=== PATIENT | male | born 1975 | race Caucasian/White ===

== ENCOUNTER 2019-09-04 12:34 | Emergency (ER) | payer MEDICAID, SELFPAY ==
[2019-09-04 12:55] VITALS: BP 167/94; PULSE 77; RESP 16; TEMP 36.7; O2SAT 96; BMI 28.8
== END 2019-09-04 15:46 | disposition left against medical advice (07) ==
PROVIDERS: Emergency Provider Family Medicine
DX: Z53.21 Procedure and treatment not carried out due to patient leaving prior to being seen by health care provider (principal)
CPT/HCPCS: 99281

== ENCOUNTER 2019-12-08 20:34 | Emergency (ER) | payer MEDICAID, SELFPAY ==
[2019-12-08 20:35] VITALS: BP 169/103; PULSE 81; RESP 18; TEMP 36.7; O2SAT 96; BMI 29.1
--- NOTE | 2019-12-08 20:38 | ECG_ITS ---
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 Measurements Intervals [place] Rate: 92 P: 65 TN: 154 QRS: 57 QRSD: 99 T: 40 QT: 346 QTc: 430 Interpretive Statements SINUS RHYTHM POSSIBLE LEFT ATRIAL ENLARGEMENT [-0.1mV P WAVE IN V1/V2] INCOMPLETE RIGHT BUNDLE BRANCH BLOCK [90+ ms QRS DURATION, TERMINAL R IN V1/V2, 40+ ms S IN I/aVL/V4/V5/V6] Compared to ECG 02/16/2019 06:37:59 Incomplete right bundle-branch block now present Electronically Signed On 12-09-2019 20:52:38 CDT by Bjorn Reagan M.D. [id number] f
--- NOTE | 2019-12-08 20:40 | W.ED.OVERDOS ---
HPI - Overdose General: Chief Complaint: Overdose Stated Complaint: OD Time Seen by Provider: 12/08/19 20:37 Source: patient and EMS Mode of arrival: EMS Limitations: no limitations History of Present Illness: HPI Narrative: 44-year-old male who states that he smoked a dab roughly 1 hour ago. Patient's called EMS because he has been quite lethargic and vomiting. Patient here is very lethargic and obviously under the influence. He will awake and answer my questions states he just feels very ill. He denies any other coingestions and denies any suicidality. Review of Systems Const: Denies: fever(s), chills, body aches or change in appetite Eyes: Denies: blurry vision or eye discomfort ENMT: Denies: throat pain or dental pain Card: Denies: chest pain Resp: Denies: dyspnea GI: Reports: nausea and vomiting : Denies: dysuria Musc: Denies: neck pain or back pain Skin/Breast: Denies: rash Neuro: Denies: headache(s) Psych: Denies: depression Lars/Lymph: Denies: easy bruising All/Imm: Denies: urticaria Physical Exam Const: COMMON NORMALS: patient oriented x3 and healthy appearing GENERAL APPEARANCE: lethargic ORIENTATION/CONSCIOUSNESS: Yes lethargic HENMT: COMMON NORMALS: normocephalic and atraumatic HEAD & SCALP: normocephalic and atraumatic Eye: COMMON NORMALS: Equal, round and reactive pupils present and EOMs intact bilaterally PUPIL: Yes Equal, round and reactive pupils present Neck/C-Spine: COMMON NORMALS: full ROM and supple Chest: COMMONS NORMALS: normal inspection of the chest and normal palpation of entire chest wall Resp: COMMON NORMALS: normal respiratory effort, No retractions, No use of accessory muscles and clear to auscultation bilaterally AUSCULTATION: clear to auscultation bilaterally Cardio: COMMON NORMALS: regular rate, regular rhythm and No murmurs present (Cardio) RATE: regular rate RHYTHM: regular rhythm GI: COMMON NORMALS: Normal to inspection, nondistended, normoactive bowel sounds present, Soft to palpation, non-tender and no masses PALPATION: Yes Soft to palpation Extremity: COMMON NORMALS: normal to inspection and full ROM Neuro: COMMON NORMALS: patient oriented x3, moves all extremities and no focal motor deficits SENSORIUM/ORIENTATION: Yes lethargic Psych: COMMON NORMALS: mental status grossly normal, Normal thought process present and cooperative THOUGHT PROCESS: Normal thought process present Skin: COMMON NORMALS: no rashes or lesions noted and no wounds GENERAL SKIN EXAM: no rashes or lesions noted Course Vital Signs: Vital signs: Vital Signs Temperature 98.1 F 12/08/19 20:35 Pulse Rate 61 12/08/19 23:18 Respiratory Rate 16 12/08/19 23:18 Blood Pressure 143/76 12/08/19 23:18 Pulse Oximetry 96 12/08/19 23:18 MDM - Overdose MDM Narrative: Medical decision making narrative: Patient presents here with overdose on marijuana. Patient is well-appearing here is able to ambulate now. This was unintentional. He has no signs of coingestion. Patient is amatory and is stable for discharge at this time. Lab Data: Labs: Lab Results 12/08/19 12/08/19 Range/Units 21:00 21:00 WBC 18.8 H (4.0-10.0) 10^3/ uL RBC 5.01 (4.1-5.3) 10^6/u L Hgb 15.9 (11.7-16.6) g/dL Hct 47.7 (42.0-52.0) % MCV 95.2 H (80-94) fL MCH 31.7 (28.0-34.0) pg MCHC 33.3 (30.0-36.0) g/dL RDW 12.6 (12.1-15.1) % Plt Count 300 (130-400) 10^3/c mm MPV 9.4 (7.4-10.4) fL Neut % (Auto) 85.1 % Lymph % (Auto) 7.1 % [place] % (Auto) 6.5 % Eos % (Auto) 0.2 % Baso % (Auto) 0.4 % Neut # (Auto) 15.99 H (1.8-7.7) 10^3/u L Lymph # (Auto) 1.3 (0.8-4.8) 10^3/u L [place] # (Auto) 1.2 H (0.2-0.9) 10^3/u L Eos # (Auto) 0.0 (0.0-0.8) 10^3/u L Baso # (Auto) 0.1 (0.0-0.1) 10^3/u L Nucleated RBC % (a uto) 0 % Nucleated RBCs # 0.0 /100WBC Sodium 138 (136-145) mmol/L Potassium 5.0 (3.5-5.1) mmol/L Chloride 100 (98-107) mmol/L Carbon Dioxide 27 (22-29) mmol/L Anion Gap 16.0 (5-19) BUN 13 (6-20) mg/dL Creatinine 1.1 (0.7-1.2) mg/dL GFR Calculation 73.4 L (90-130) mL/min Glucose 135 H (65-115) mg/dL Calculated Osmolal ity 288 (285-295) mOsm/k g Calcium 9.8 (8.5-10.5) mg/dL Total Bilirubin 0.3 (0.15-1.2) mg/dL AST 18 (0-40) U/L ALT 14 (0-41) U/L Alkaline Phosphata se 69 (40-130) IU/L Total Protein 7.0 (6.6-8.7) g/dL Albumin 4.5 (3.5-5.2) g/dL Globulin 2.5 (1.3-4.6) g/dL Salicylates < 0.3 L (3-10) mg/dL Acetaminophen < 5.0 L (10-30) ug/mL Ethyl Alcohol < 10 (0-10) mg/dL EKG Data^: EKG 1: Attestation: I personally reviewed and interpreted this EKG as follows: EKG interpretation date: 12/08/19 EKG interpretation time: 20:39 Interpretation: nsr hr [address] or t wave abnormalities qrs 99 qtc 396 Discharge Plan Discharge Patient Disposition: Home Clinical Impression: Accidental marijuana overdose Qualifiers: Encounter type: initial encounter Qualified Code(s): T40.7X1A - Poisoning by cannabis (derivatives), accidental (unintentional), initial encounter Condition: Stable Discharge Orders: Discharge Order (Routine); Ordered 12/09/19 Ordered By: Judi Francois Discharge Diet: Advance as tolerated Discharge Activity: Resume usual activity Patient Instructions: Marijuana Abuse Coding Level of Care Code ED Hand Cloth Cutter for Chg Fwd Exam Comprehensive
[2019-12-08] MEDS: ondansetron 2 mg/ML SDV 2 mL 4 MG IVP (20:57)
[2019-12-08] MEDS: sodium chloride 0.9% 1,000 ML 999 ML IV (20:58)
[2019-12-08 21:02] VITALS: BP 149/95; PULSE 56; RESP 17; O2SAT 95
[2019-12-08 21:07] LABS: Basophils # 0.1 10^3/uL (0.0-0.1); Basophils % 0.4 %; Eosinophils % 0.2 %; Hematocrit 47.7 % (42.0-52.0); Hemoglobin 15.9 g/dL (11.7-16.6); Lymphocytes # 1.3 10^3/uL (0.8-4.8); Lymphocytes % 7.1 %; Mean Corpuscular HGB Conc 33.3 g/dL (30.0-36.0); Mean Corpuscular Hemoglobin 31.7 pg (28.0-34.0); Mean Corpuscular Volume 95.2 fL (80-94); Mean Platelet Volume 9.4 fL (7.4-10.4); Monocytes # 1.2 10^3/uL (0.2-0.9); Monocytes % 6.5 %; Neutrophils # 15.99 10^3/uL (1.8-7.7); Neutrophils % 85.1 %; Nucleated Red Blood Cells % 0 %; Platelet Count 300 10^3/cmm (130-400); Red Blood Count 5.01 10^6/uL (4.1-5.3); Red Cell Distribution Width 12.6 % (12.1-15.1); White Blood Count 18.8 10^3/uL (4.0-10.0)
[2019-12-08 21:28] LABS: Alanine Aminotransferase 14 U/L (0-41); Albumin Level 4.5 g/dL (3.5-5.2); Alkaline Phosphatase 69 IU/L (40-130); Aspartate Amino Transferase 18 U/L (0-40); Blood Urea Nitrogen 13 mg/dL (6-20); Calcium 9.8 mg/dL (8.5-10.5); Carbon Dioxide 27 mmol/L (22-29); Chloride 100 mmol/L (98-107); Globulin 2.5 g/dL (1.3-4.6); Glomerular Filtration Rate 73.4 mL/min (90-130); Glucose 135 mg/dL (65-115); Osmolality Calculated 288 mOsm/kg (285-295); Sodium 138 mmol/L (136-145); Total Bilirubin 0.3 mg/dL (0.15-1.2)
[2019-12-08 21:31] LABS: Acetaminophen < 5.0 ug/mL (10-30); Alcohol Level < 10 mg/dL (0-10); Salicylate < 0.3 mg/dL (3-10)
[2019-12-08 22:57] VITALS: BP 133/81; PULSE 52; RESP 18; O2SAT 96
[2019-12-08 23:18] VITALS: BP 143/76; PULSE 61; RESP 16; O2SAT 96
[2019-12-09 00:25] VITALS: BP 123/75; PULSE 65; RESP 16; O2SAT 99
== END 2019-12-09 00:27 | disposition home or self-care (01) ==
PROVIDERS: Emergency Provider Emergency Medicine
DX: T40.7X1A Poisoning by cannabis (derivatives), accidental (unintentional), initial encounter (principal)
CPT/HCPCS: 12345; 80053; 80307; 85025; 93005; 99283; J2405; J7030

== ENCOUNTER 2020-02-27 20:16 | Emergency (ER) | payer MEDICAID, SELFPAY ==
[2020-02-27 20:55] VITALS: BP 150/100; PULSE 77; RESP 22; TEMP 36.9; O2SAT 98; BMI 27.7
--- NOTE | 2020-02-27 21:19 | XRR_ITS ---
PROCEDURE INFORMATION: Exam: XR Chest, 1 View Exam date and time: 02/27/2020 10:11 PM Age: 44 years old Clinical indication: Fever and shortness of breath; Patient HX: SOB, fever; Additional info: Dyspnea TECHNIQUE: Imaging protocol: XR of the chest Views: 1 view. COMPARISON: CR Chest 2 views* [id number] 02/19/2017 10:36 PM FINDINGS: Lungs: The lungs are clear. Pleural space: Unremarkable. No pleural effusion. No pneumothorax. Heart/Mediastinum: Unremarkable. No cardiomegaly. Bones/joints: Unremarkable. XR/XR chest 1V portable [id number] IMPRESSION: No acute cardiopulmonary abnormality.
--- NOTE | 2020-02-27 21:23 | ECG_ITS ---
[facility] Test Date: 2020-02-27 Pat Name: Lewis Lord Department: Room: Gender: Male [place] Drawer: : 1975 Requested By: Chace Diggs Order Number: [id number] Fredy MD: Leonardo Erickson M.D. Measurements Intervals [place] Rate: 60 P: 62 NM: 158 QRS: 57 QRSD: 98 T: 51 QT: 358 QTc: 359 Interpretive Statements SINUS RHYTHM WITH SINUS ARRHYTHMIA POSSIBLE LEFT ATRIAL ENLARGEMENT [-0.1mV P WAVE IN V1/V2] INCOMPLETE RIGHT BUNDLE BRANCH BLOCK [90+ ms QRS DURATION, TERMINAL R IN V1/V2, 40+ ms S IN I/aVL/V4/V5/V6] Compared to ECG 12/08/2019 20:39:23 No significant changes Electronically Signed On 02-28-2020 16:43:17 AUTOMATIC DEVELOPER by Leonardo Erickson M.D. [id number] f
--- NOTE | 2020-02-27 21:24 | W.ED.SOB ---
HPI - SOB/Dyspnea General: Chief Complaint: Shortness of Breath/Dyspnea Stated Complaint: fever/congestion/trouble breathing Time Seen by Provider: 02/27/20 21:04 History of Present Illness: HPI Narrative: The patient is a 44-year-old male with past medical history COPD who comes to the ER complaining of shortness of breath, cough, congestion, muscle aches, fever, chills, nausea, and vomiting for the past 2 days. He says it hurts when he coughs in his chest as well. No known Covid exposures although his child claims to be sick as well MD elicited complaint: shortness of breath, cough and pain with inspiration Pertinent past history: COPD Onset (ago): day(s) (2) Timing: progressively worsening Severity: moderate Exacerbating factors: exertion and coughing Known history of: COPD Associated symptoms: Reports cough, fever(s), myalgias, nausea and vomiting; Deny chest pain, dizziness, extremity pain, orthopnea, palpitations or polyuria Treatment prior to arrival: none Review of Systems General: Reports: 10 or more systems reviewed and unremarkable except in HPI and below Const: Reports: fever(s) Eyes: Denies: change in vision, blurry vision or eye redness ENMT: Denies: throat pain, swelling of lips/tongue, ear or mastoid pain or nasal congestion Card: Denies: chest pain, palpitations, irregular heart rhythm, edema, dyspnea on exertion or orthopnea Resp: Denies: dyspnea, productive cough or non-productive cough GI: Reports: nausea and vomiting : Denies: flank pain, urinary frequency or urinary urgency Musc: Denies: neck pain, back pain, extremity pain, joint pain, joint redness, limited range of motion or muscle weakness Skin/Breast: Denies: rash, pruritus, erythema, skin pain or skin tenderness Neuro: Denies: headache(s), numbness in extremities, weakness in extremities, sensory changes, difficulty walking, dizziness, confusion or Slurred speech present Psych: Denies: anxiety or depression Endo: Denies: polyuria All/Imm: Denies: urticaria, throat swelling or tongue swelling Physical Exam Const: COMMON NORMALS: no acute distress, average body habitus, patient oriented x3, no limitations, healthy appearing, alert and well nourished GENERAL APPEARANCE: cooperative, comfortable, well kempt and well developed ORIENTATION/CONSCIOUSNESS: Yes awake, Yes oriented to person, Yes oriented to place and Yes oriented to time HENMT: COMMON NORMALS: normocephalic, external ears normal and Normal external nose present HEAD & SCALP: normal to inspection and normocephalic NOSE: Normal external nose present EXTERNAL EAR: Yes external ears normal MOUTH: Normal oral and palatal mucosa present THROAT: posterior oropharynx normal Eye: COMMON NORMALS: Equal, round and reactive pupils present and EOMs intact bilaterally GENERAL EYE: appearance normal, both eyes and all related structures PUPIL: Yes Equal, round and reactive pupils present Neck/C-Spine: COMMON NORMALS: full ROM, no lymphadenopathy, no meningeal signs and no JVD GENERAL: Yes normal visual inspection Lymph: LYMPHATIC: no lymphadenopathy noted Chest: COMMONS NORMALS: normal inspection of the chest and normal palpation of entire chest wall Resp: COMMON NORMALS: normal respiratory effort, No retractions, No use of accessory muscles and percussion normal EFFORT & INSPECTION: Yes able to speak in complete sentences and No respiratory distress AUSCULTATION: wheezes and diminished lung sounds PERCUSSION: percussion normal OTHER: anterior chest wall tenderness to palpation reproducing the pain he feels when he coughs. Cardio: COMMON NORMALS: no JVD, regular rate, regular rhythm, S1 normal heart sound present, S2 normal heart sound present and Peripheral pulses 2+ throughout RATE: regular rate RHYTHM: regular rhythm HEART SOUNDS: S1 normal heart sound present and S2 normal heart sound present PERIPHERAL PULSES: Peripheral pulses 2+ throughout GI: COMMON NORMALS: Normal to inspection, nondistended, normoactive bowel sounds present, Soft to palpation, non-tender and no masses INSPECTION: Yes normal to inspection PALPATION: Yes Soft to palpation : COMMON NORMALS: Yes no CVA tenderness BLADDER/KIDNEY EXAM: Yes no CVA tenderness Back/Pelvis: COMMON NORMALS: no CVA tenderness, thoracic and lumbar spine normal to inspection, no thoracic nor lumbar tenderness and thoraco-lumbar ROM normal Extremity: COMMON NORMALS: normal to inspection, full ROM, capillary refill normal, no joint enlargement and no pedal edema GENERAL: Yes normal exam except as noted Neuro: COMMON NORMALS: patient oriented x3, CN's II-XII intact bilaterally, moves all extremities, no focal motor deficits, no sensory deficits noted and gait normal SENSORIUM/ORIENTATION: Yes alert, Yes oriented to person, Yes oriented to place and Yes oriented to time MENINGEAL SIGNS: Yes no meningeal signs Psych: COMMON NORMALS: mental status grossly normal, Normal thought process present, cooperative, normal affect and speech normal APPEARANCE: Yes well kempt ATTITUDE: Yes calm SPEECH: Yes normal speech THOUGHT PROCESS: Normal thought process present Skin: COMMON NORMALS: no rashes or lesions noted GENERAL SKIN EXAM: no rashes or lesions noted Course Vital Signs: Vital signs: Vital Signs Temperature 98.5 F 02/27/20 20:55 Pulse Rate 57 L 02/27/20 23:31 Respiratory Rate 18 02/27/20 23:31 Blood Pressure 134/78 02/27/20 23:31 Pulse Oximetry 95 02/27/20 23:31 MDM - SOB/Dyspnea MDM Narrative: Medical decision making narrative: Flu and Covid were negative. Likely COPD exacerbation. He will be discharged home with antibiotic, prednisone, and albuterol inhaler. Return to the ER with worsening symptoms otherwise follow-up with primary care physician in a couple days to monitor improvement. Differential Diagnosis: Shortness of Breath Differential Diagnosis: Likely acute exacerbation of chronic obstructive airways disease and community acquired pneumonia Lab Data: Labs: Lab Results 02/27/20 02/27/20 02/27/20 Range/Units 21:45 21:50 21:55 WBC 8.4 (4.0-10.0) 10^3/ uL RBC 5.28 (4.1-5.3) 10^6/u L Hgb 17.0 H (11.7-16.6) g/dL Hct 49.8 (42.0-52.0) % MCV 94.3 H (80-94) fL MCH 32.2 (28.0-34.0) pg MCHC 34.1 (30.0-36.0) g/dL RDW 12.6 (12.1-15.1) % Plt Count 307 (130-400) 10^3/c mm MPV 9.3 (7.4-10.4) fL Neut % (Auto) 60.4 % Lymph % (Auto) 20.4 % [place] % (Auto) 14.6 % Eos % (Auto) 3.0 % Baso % (Auto) 0.8 % Neut # (Auto) 5.06 (1.8-7.7) 10^3/u L Lymph # (Auto) 1.7 (0.8-4.8) 10^3/u L [place] # (Auto) 1.2 H (0.2-0.9) 10^3/u L Eos # (Auto) 0.3 (0.0-0.8) 10^3/u L Baso # (Auto) 0.1 (0.0-0.1) 10^3/u L Nucleated RBC % (a uto) 0 % Nucleated RBCs # 0.0 /100WBC Sodium (136-145) mmol/L Potassium (3.5-5.1) mmol/L Chloride (98-107) mmol/L Carbon Dioxide (22-29) mmol/L Anion Gap (5-19) BUN (6-20) mg/dL Creatinine (0.7-1.2) mg/dL GFR Calculation (90-130) mL/min Glucose (65-115) mg/dL Calculated Osmolal ity (285-295) mOsm/k g Lactic Acid (0.5-2.2) mmol/L Calcium (8.5-10.5) mg/dL Total Bilirubin (0.15-1.2) mg/dL AST (0-40) U/L ALT (0-41) U/L Alkaline Phosphata se (40-130) IU/L Troponin T Baselin e (0-15) ng/L Total Protein (6.6-8.7) g/dL Albumin (3.5-5.2) g/dL Globulin (1.3-4.6) g/dL Influenza Type A A g Negative (Negative) Influenza Type B A g Negative (Negative) SARS-CoV-2 Ag (Rap id) Negative (Negative) 02/27/20 02/27/20 02/27/20 Range/Units 21:55 21:55 21:55 WBC (4.0-10.0) 10^3/ uL RBC (4.1-5.3) 10^6/u L Hgb (11.7-16.6) g/dL Hct (42.0-52.0) % MCV (80-94) fL MCH (28.0-34.0) pg MCHC (30.0-36.0) g/dL RDW (12.1-15.1) % Plt Count (130-400) 10^3/c mm MPV (7.4-10.4) fL Neut % (Auto) % Lymph % (Auto) % [place] % (Auto) % Eos % (Auto) % Baso % (Auto) % Neut # (Auto) (1.8-7.7) 10^3/u L Lymph # (Auto) (0.8-4.8) 10^3/u L [place] # (Auto) (0.2-0.9) 10^3/u L Eos # (Auto) (0.0-0.8) 10^3/u L Baso # (Auto) (0.0-0.1) 10^3/u L Nucleated RBC % (a uto) % Nucleated RBCs # /100WBC Sodium 138 (136-145) mmol/L Potassium 4.2 (3.5-5.1) mmol/L Chloride 102 (98-107) mmol/L Carbon Dioxide 26 (22-29) mmol/L Anion Gap 14.2 (5-19) BUN 17 (6-20) mg/dL Creatinine 0.9 (0.7-1.2) mg/dL GFR Calculation 92.5 (90-130) mL/min Glucose 92 (65-115) mg/dL Calculated Osmolal ity 287 (285-295) mOsm/k g Lactic Acid 1.4 (0.5-2.2) mmol/L Calcium 10.2 (8.5-10.5) mg/dL Total Bilirubin 0.2 (0.15-1.2) mg/dL AST 16 (0-40) U/L ALT 16 (0-41) U/L Alkaline Phosphata se 80 (40-130) IU/L Troponin T Baselin e 6 (0-15) ng/L Total Protein 7.3 (6.6-8.7) g/dL Albumin 4.4 (3.5-5.2) g/dL Globulin 2.9 (1.3-4.6) g/dL Influenza Type A A g (Negative) Influenza Type B A g (Negative) SARS-CoV-2 Ag (Rap id) (Negative) Discharge Plan Discharge Patient Disposition: Home Clinical Impression: Acute exacerbation of chronic obstructive airways disease Condition: Stable Prescriptions: New ProAir HFA 90 mcg/actuation HFA aerosol inhaler 2 inh inhalation Q6H PRN (Reason: shortness of breath or wheezing) Qty: 18 RF: 0 ciprofloxacin HCl 500 mg tablet 500 mg PO Q12H Qty: 20 RF: 0 Medrol (Usama) 4 mg tablets,dose pack See Rx Instructions PO .COMPLEX Qty: 21 RF: 0 Discharge Orders: Discharge ED (Routine); Ordered 02/27/20 Ordered By: Chace Diggs Discharge Diet: Advance as tolerated Discharge Activity: Resume usual activity Patient Instructions: Chronic Obstructive Pulmonary Disease (ED) Activity Restrictions/Additional Instructions: You have a COPD exacerbation. Please use the albuterol to help with breathing as well as take the antibiotics and prednisone. Return to the ER with worsening symptoms. Follow-up with your primary care physician in a few days to monitor improvement of your symptoms Coding Level of Care Code ED Post Commander for Jose Antonio Schulz Exam Comprehensive
[2020-02-27] MEDS: sodium chloride 0.9% 1,000 ML 999 ML IV (21:50)
[2020-02-27 22:01] VITALS: BP 176/113; PULSE 65; RESP 20; O2SAT 96
[2020-02-27] MEDS: ondansetron 2 mg/ML SDV 2 mL 4 MG IVP (22:15)
[2020-02-27] MEDS: aspirin 325 mg Tablet 650 MG PO (22:20)
[2020-02-27 22:29] LABS: Basophils # 0.1 10^3/uL (0.0-0.1); Basophils % 0.8 %; Eosinophils # 0.3 10^3/uL (0.0-0.8); Hematocrit 49.8 % (42.0-52.0); Lymphocytes # 1.7 10^3/uL (0.8-4.8); Lymphocytes % 20.4 %; Mean Corpuscular HGB Conc 34.1 g/dL (30.0-36.0); Mean Corpuscular Hemoglobin 32.2 pg (28.0-34.0); Mean Corpuscular Volume 94.3 fL (80-94); Mean Platelet Volume 9.3 fL (7.4-10.4); Monocytes # 1.2 10^3/uL (0.2-0.9); Monocytes % 14.6 %; Neutrophils # 5.06 10^3/uL (1.8-7.7); Neutrophils % 60.4 %; Nucleated Red Blood Cells % 0 %; Platelet Count 307 10^3/cmm (130-400); Red Blood Count 5.28 10^6/uL (4.1-5.3); Red Cell Distribution Width 12.6 % (12.1-15.1); White Blood Count 8.4 10^3/uL (4.0-10.0)
[2020-02-27 22:31] VITALS: BP 125/94; PULSE 68; RESP 18; O2SAT 97
[2020-02-27 22:46] LABS: Alanine Aminotransferase 16 U/L (0-41); Albumin Level 4.4 g/dL (3.5-5.2); Alkaline Phosphatase 80 IU/L (40-130); Aspartate Amino Transferase 16 U/L (0-40); Blood Urea Nitrogen 17 mg/dL (6-20); Calcium 10.2 mg/dL (8.5-10.5); Carbon Dioxide 26 mmol/L (22-29); Chloride 102 mmol/L (98-107); Globulin 2.9 g/dL (1.3-4.6); Glomerular Filtration Rate 92.5 mL/min (90-130); Glucose 92 mg/dL (65-115); Lactic Sepsis W/Reflex 1.4 mmol/L (0.5-2.2); Osmolality Calculated 287 mOsm/kg (285-295); Sodium 138 mmol/L (136-145); Total Bilirubin 0.2 mg/dL (0.15-1.2); Total Protein 7.3 g/dL (6.6-8.7)
[2020-02-27 22:48] LABS: Troponin(5th) Baseline 6 ng/L (0-15)
[2020-02-27 22:57] LABS: Anion Gap 14.2 (5-19); Potassium 4.2 mmol/L (3.5-5.1)
[2020-02-27 23:01] VITALS: BP 150/103; PULSE 62; RESP 18; O2SAT 97
[2020-02-27 23:31] VITALS: BP 134/78; PULSE 57; RESP 18; O2SAT 95
[2020-02-27 23:44] LABS: Influenza A by IFA Negative (Negative); Influenza B by IFA Negative (Negative)
[2020-02-27 23:44] LABS: SARS Covid-2 Antigen Negative (Negative)
--- NOTE | 2020-02-28 01:09 | PC.NURSE ---
pt signed dc paperwork and left prior to med adm. Dr notified
--- NOTE | 2020-02-28 01:11 | PC.NURSE ---
I agree with the assessment charted by Maddy.
[2020-02-28 01:55] VITALS: BP 134/78; PULSE 98; RESP 22; O2SAT 95
== END 2020-02-28 01:59 | disposition home or self-care (01) ==
PROVIDERS: Emergency Provider Family Medicine
DX: J44.1 Chronic obstructive pulmonary disease with (acute) exacerbation (principal)
CPT/HCPCS: 12345; 36415; 71045; 80053; 83605; 84484; 85025; 87040; 87426; 87804; 93005; 96361; 96374; 99282; 99284; J2405; J7030

== ENCOUNTER → 2020-11-12 15:33 | Outpatient (BNVA) | payer BC, MEDICAID, SELFPAY | PROVIDERS: Visit Provider Nurse Practitioner Family | DX: Z20.822 Contact with and (suspected) exposure to COVID-19 (principal) | CPT/HCPCS: 87635 ==

== ENCOUNTER 2021-03-09 09:28 | Outpatient (CLI) | payer BC, MEDICAID, SELFPAY ==
--- NOTE | 2021-03-09 09:41 | XRR_ITS ---
PROCEDURE INFORMATION: Exam: XR Chest Exam date and time: 03/09/2021 9:41 AM Age: 45 years old Clinical indication: Cough with hemorrhage; Patient HX: Post covid hemoptysis TECHNIQUE: Imaging protocol: XR of the chest. Views: 2 views. Total images: 2 COMPARISON: CR XR chest 1V portable [id number] 02/27/2020 10:09 PM FINDINGS: Lungs: Unremarkable. No consolidation. Pleural spaces: Unremarkable. No pleural effusion. No pneumothorax. Heart/Mediastinum: Unremarkable. No cardiomegaly. Bones/joints: Unremarkable. XR/XR chest 2V* [id number] IMPRESSION: No acute findings.
== END 2021-03-09 09:29 | disposition home or self-care (01) ==
LOC: RAD 09:32
PROVIDERS: Visit Provider Family Medicine
DX: R04.2 Hemoptysis (principal)
CPT/HCPCS: 71046

== ENCOUNTER 2021-04-19 09:17 | Outpatient (CLI) | payer BC, MEDICAID, SELFPAY ==
--- NOTE | 2021-04-19 13:29 | PFTS_ITS ---
Date of Study:04/19/21 Date of Dictation: 04/19/2021 MECHANICS: Post bronchodilator forced vital capacity (FVC) is normal. Post bronchodilator forced expiratory volume in one second (FEV1) is normal. FEV1/FVC is reduced. There is significant response to bronchodilators. FLOW VOLUME LOOP: Sloping of expiratory limb suggestive of airway obstruction . LUNG VOLUMES: Total lung capacity (TLC) is normal. Residual volume (RV) is normal. DIFFUSING CAPACITY FOR CARBON MONOXIDE: Normal. . INTERPRETATION: The prebronchodilator spirometry is consistent with moderate obstruction which improved significantly post bronchodilators. Lung volumes are normal. Gas transfer is normal. Constellation of findings consistent with reversible obstructive ventilatory disease entities like asthma. Please correlate clinically. MTDD
== END 2021-04-19 09:18 | disposition home or self-care (01) ==
PROVIDERS: Visit Provider Family Medicine
DX: J44.9 Chronic obstructive pulmonary disease, unspecified (principal)
CPT/HCPCS: 94060; 94726; 94729; J7611

== ENCOUNTER 2021-04-19 09:19 | Outpatient (CLI) | payer BC, MEDICAID, SELFPAY ==
--- NOTE | 2021-04-19 09:30 | CT_ITS ---
WS: [id number] CT CHEST WITH INTRAVENOUS CONTRAST HISTORY: HEMOPTYSIS/NIGHT SWEATS TECHNIQUE: Contiguous 5 mm axial imaging performed on the thorax. Coronal and sagittal reformats are submitted. All CT scans at [facility] use at least one of these dose optimization techniques: automated exposure control; mA and/or kV adjustment per patient size (includes targeted exams where dose is matched to clinical indication); or iterative reconstruction. CONTRAST: Omnipaque 300; 95 mL IV. DLP: 865.90 mGy.cm COMPARISON: 03/10/2011 Lungs and central airway: No pulmonary nodule or mass. Normal vasculature. No pneumonia. Pleura: Normal. No pleural effusion. Heart and pericardium: Normal size heart with no pericardial effusion. Mediastinum and favio: No mediastinum or hilar adenopathy. Vessels: Normal size aorta and pulmonary artery. There is a small amount of air in the pulmonary carmen ry and also smaller veins in the superior mediastinum. This is probably due to poor injection techniq ue. Chest wall and lower neck: No soft tissue masses. Upper abdomen: Retroaortic LEFT renal vein. Partially contracted gallbladder. Osseous structures: No destructive process. CT/CT chest w con* [id number] IMPRESSION: 1. No pulmonary mass or pneumonia. 2. No endobronchial lesions identified. 3. No adenopathy.
[2021-04-19] MEDS: iohexol 300 mg/mL 100 mL Btl IV (10:21)
== END 2021-04-19 09:20 | disposition home or self-care (01) ==
LOC: RAD 09:20
PROVIDERS: Visit Provider Pediatrics
DX: R04.2 Hemoptysis (principal); R61 Generalized hyperhidrosis
CPT/HCPCS: 71260

== ENCOUNTER 2021-11-20 19:45 | Emergency (ER) | payer BC, MEDICAID, SELFPAY ==
[2021-11-20 19:51] VITALS: BP 172/108; PULSE 67; RESP 16; TEMP 36.9; O2SAT 96
--- NOTE | 2021-11-20 20:22 | W.ED.PSYCHS ---
HPI - Psych General: Chief Complaint: Psychiatric Symptoms Stated Complaint: MHE Time Seen by Provider: 11/20/21 19:54 Source: patient History of Present Illness: 46-year-old male brought in by law enforcement. Evidently, he had made suicidal statements to his , into law enforcement as well. This was in the middle of a verbal dispute with he and his . He says now that he said some things he should not have. He floridly denies any suicidal ideation currently, and has no plan to hurt himself or anyone else. He does admit to chronic depression, which she is attempting to manage on his own. He is a patient at [facility], [facility], and has been a patient at [facility] prior. He has not been hospitalized for suicidal ideations in the past. He denies any hallucinations. No drug or alcohol intake. MD complaint: feels depressed and other Onset (ago): hour(s) Duration: other History of same: Yes Relieving factors: none Exacerbating factors: none Associated psychiatric symptoms: depression Associated symptoms: Reports depression; Deny auditory hallucinations, visual hallucinations, delusions, homicidal ideation or suicidal ideation Treatments prior to arrival: none Review of Systems Const: Denies: fever(s), chills or body aches Eyes: Denies: change in vision Card: Denies: chest pain or palpitations Resp: Reports: non-productive cough and wheezing; Denies: dyspnea or productive cough GI: Denies: abdominal pain, nausea, vomiting, diarrhea or hematochezia Skin/Breast: Denies: rash Neuro: Denies: headache(s), weakness in extremities, dizziness or confusion Psych: Reports: depression; Denies: visual hallucinations, auditory hallucinations, suicidal ideation or homicidal ideation [facility] ED PFSH: Social History Smoking and tobacco status: current every day smoker cigarettes Physical Exam Const: COMMON NORMALS: no acute distress GENERAL APPEARANCE: cooperative; not ill appearing HENMT: COMMON NORMALS: normocephalic, atraumatic and Normal external nose present HEAD & SCALP: normocephalic and atraumatic FACE & SINUS: normal facial exam NOSE: Normal external nose present and Normal nares present Eye: COMMON NORMALS: Equal, round and reactive pupils present and EOMs intact bilaterally PUPIL: Yes Equal, round and reactive pupils present Neck/C-Spine: GENERAL: Yes trachea midline Chest: CHEST: Yes Symmetrical chest wall rise Resp: COMMON NORMALS: normal respiratory effort and No use of accessory muscles AUSCULTATION: wheezes (Bilaterally) Cardio: COMMON NORMALS: regular rate and regular rhythm RATE: regular rate RHYTHM: regular rhythm GI: COMMON NORMALS: Normal to inspection, nondistended, normoactive bowel sounds present and Soft to palpation PALPATION: Yes Soft to palpation Extremity: COMMON NORMALS: no pedal edema Neuro: DRISS COMA SCALE: document GCS findings [place] coma scale eye opening: Spontaneous [place] coma scale verbal response: Orientated Driss coma scale motor response: Obey commands [place] coma scale total score: 15 SPEECH: speech normal Psych: COMMON NORMALS: mental status grossly normal, Normal thought process present and cooperative ATTITUDE: Yes calm and Yes engaged ACTIVITY/MOTOR BEHAVIOR: Yes appropriate eye contact MOOD & AFFECT: Yes depressed mood THOUGHT PROCESS: Normal thought process present THOUGHT CONTENT: Yes Normal thought content present and No delusions ATTENTION/CONCENTRATION: Yes attention grossly intact and Yes concentration grossly intact MEMORY/COGNITION: Yes memory grossly intact and Yes cognition grossly intact INSIGHT: Fair insight present (Psych) JUDGEMENT: Fair judgement present (Psych) Skin: COMMON NORMALS: no rashes or lesions noted GENERAL SKIN EXAM: no rashes or lesions noted Course Vital Signs: Vital signs: Vital Signs Temperature 98.4 F 11/20/21 19:51 Pulse Rate 67 11/20/21 19:51 Respiratory Rate 18 11/20/21 20:44 Blood Pressure 172/108 11/20/21 19:51 Pulse Oximetry 96 11/20/21 20:44 Oxygen Delivery Me thod 11/20/21 19:51 MDM - Psych Medical Decision Making This patient has been a difficult social situation today. He admits that he made statements, which not only are not true, but that he should not have made. He does say that his is quite upset as well. He is reluctant to go back home to the household if released, and I believe it would be a good decision for him not to. He does note that he can go to his adoptive parents house tonight and attempt to separate himself from his prior situation today. I agree that this is a good plan, and shows some insight. He floridly denies any wish to harm himself or anyone else. He will be allowed discharge. He does not appear to be under the influence of any substances. Discharge Plan Discharge Patient Disposition: Home Clinical Impression: Depression, Domestic problems Condition: Stable Prescriptions: No Action lisinopril 10 mg tablet 10 mg PO DAILY ProAir HFA 90 mcg/actuation HFA aerosol inhaler 2 inh inhalation Q6H PRN (Reason: shortness of breath or wheezing) Qty: 18 0RF Discharge Orders: Discharge ED (Routine); Ordered 11/20/21 Ordered By: Tavo Escamilla Patient Instructions: Depression (ED) Activity Restrictions/Additional Instructions: Return immediately to the emergency department for any thoughts or wishes to harm your self or anyone else. It is a good plan to separate your self from your domestic situation for at least the next 24 hours. Return for any other concerning symptoms. Coding Level of Care Code ED Band Sawing Machine Operator for Jose Antonio Fwd Exam Comprehensive
[2021-11-20 20:44] VITALS: RESP 18; O2SAT 96
== END 2021-11-20 20:46 | disposition home or self-care (01) ==
PROVIDERS: Emergency Provider Emergency Medicine
DX: F32.A Depression, unspecified (principal); Z63.0 Problems in relationship with spouse or partner; F17.210 Nicotine dependence, cigarettes, uncomplicated
CPT/HCPCS: 99285

== ENCOUNTER 2021-12-25 11:01 | Emergency (ER) | payer BC, MEDICAID, SELFPAY ==
[2021-12-25] VITALS (7 sets, daily range): BP systolic 130–168; BP diastolic 90–105; PULSE 61–87; RESP 13–22; TEMP 36.6; O2SAT 94–99; BMI 23.7
[2021-12-25 11:22] LABS: Glucose Point of Care 90 mg/dL (70-110)
--- NOTE | 2021-12-25 11:26 | CTR_ITS ---
PROCEDURE INFORMATION: Exam: CT Head Without Contrast Exam date and time: 12/25/2021 11:39 AM Age: 46 years old Clinical indication: Pain; Headache not specified; Patient HX: Stuttering, shaking x 5 days, no HX of trauma; Additional info: Neuro symptoms TECHNIQUE: Imaging protocol: Computed tomography of the head without contrast. Radiation optimization: All CT scans at this facility use at least one of these dose optimization techniques: automated exposure control; mA and/or kV adjustment per patient size (includes targeted exams where dose is matched to clinical indication); or iterative reconstruction. COMPARISON: CT head wo con* [id number] 07/15/2017 9:30 PM RADIATION DOSE METRICS: Total DLP (mGy-cm): 1023.14 FINDINGS: Brain: No intracranial hemorrhage. Normal burdick white differentiation. Subtle areas of decreased attenuation in the deep white matter of the bilateral frontal lobes is nonspecific but unchanged since 2018 and compatible with microvascular ischemia. No evidence of edema or territorial infarct. No abnormal mass effect or midline shift. No extra-axial fluid collection. Cerebral ventricles: No ventriculomegaly. Paranasal sinuses: Visualized sinuses are unremarkable. No fluid levels. Mastoid air cells: Visualized mastoid air cells are well aerated. Bones/joints: No acute fracture. Soft tissues: Unremarkable. CT/CT head wo con* [id number] IMPRESSION: No acute intracranial abnormality.
[2021-12-25 11:40] LABS: Basophils # 0.1 10^3/uL (0.0-0.1); Basophils % 0.9 %; Eosinophils # 0.1 10^3/uL (0.0-0.8); Eosinophils % 1.4 %; Hematocrit 54.2 % (42.0-52.0); Hemoglobin 18.3 g/dL (11.7-16.6); Lymphocytes % 30.3 %; Mean Corpuscular HGB Conc 33.8 g/dL (30.0-36.0); Mean Corpuscular Hemoglobin 32.2 pg (28.0-34.0); Mean Corpuscular Volume 95.3 fl (80-94); Mean Platelet Volume 9.7 fL (7.4-10.4); Monocytes # 0.6 10^3/uL (0.2-0.9); Monocytes % 8.9 %; Neutrophils # 3.83 10^3/uL (1.8-7.7); Nucleated Red Blood Cells % 0 %; Platelet Count 318 10^3/cmm (130-400); Red Blood Count 5.69 10^6/uL (4.1-5.3); Red Cell Distribution Width 12.9 % (12.1-15.1); White Blood Count 6.6 10^3/uL (4.0-10.0)
[2021-12-25 11:51] LABS: Alanine Aminotransferase 11 U/L (0-41); Albumin Level 4.5 g/dL (3.5-5.2); Alkaline Phosphatase 89 U/L (40-130); Aspartate Amino Transferase 16 U/L (0-40); Blood Urea Nitrogen 12 mg/dL (6-20); Calcium 9.6 mg/dL (8.5-10.5); Carbon Dioxide 28 mmol/L (22-29); Chloride 100 mmol/L (98-107); Globulin 3.4 g/dL (1.3-4.6); Glomerular Filtration Rate 91.7 mL/min (90-130); Glucose 96 mg/dL (65-115); Magnesium 2.1 mg/dL (1.7-2.3); Osmolality Calculated 288 mOsm/kg (285-295); Sodium 139 mmol/L (136-145); Total Bilirubin 0.5 mg/dL (0.15-1.2); Total Protein 7.9 g/dL (6.6-8.7)
[2021-12-25 11:52] LABS: Alcohol Level < 10 mg/dL (0-10)
[2021-12-25 11:56] LABS: Erythrocyte Sedimentation Rate 4 mm/hr (0-10)
--- NOTE | 2021-12-25 12:28 | ED_ITS ---
HPI - Neuro Symptoms/Deficit General: Chief Complaint: Neuro Symptoms/Deficit Stated Complaint: stoke like symptoms Time Seen by Provider: 12/25/21 11:14 History of Present Illness: This patient is a 46 year old presenting from home with concern for stroke. His SO who is with him at the time of my assessment tells me that he has been under a lot of stress and that he has had stuttering and constant shaking for the past two days. The patient had indicated that he wanted her to talk for him - but then joined in to provide history. He says that he noticed these symptoms starting 4 days ago. He has had similar symptoms in the past and was told that he had dark spots in his brain of CT or MR. He was seen by Dr. Live for this. He was not given any specific treatment and doesn't know what the diagnosis was. I was not able to find any notes referring to these symptoms in the EHR. The patient reports a mild headache, but no fever, no vision changes, no numbness, weakness, trouble walking or problems with coordination. He has shaking of his right arm, right leg, head during my exam, but he says that the shaking usually happens all over his body. His SO says that it is pretty much constant. The patient smokes. He has a history of HTN and is on BP medication although she notes that it is not the lisinopril that is listed on his medication list. They can't remember what the name of the medication is. Nothing makes the symptoms better or worse. Associated symptoms: Reports headache(s); Deny chest pain, malaise, nausea or vomiting Review of Systems Const: Denies: fever(s), chills, fatigue or malaise Eyes: Denies: change in vision ENMT: Denies: odynophagia Card: Denies: chest pain or swelling of feet/ankles Resp: Denies: dyspnea, productive cough or non-productive cough GI: Denies: abdominal pain, nausea or vomiting : Denies: flank pain Musc: Denies: neck pain or back pain Skin/Breast: Denies: rash Neuro: Reports: headache(s), seizure-like activity, involuntary movements and other (stuttering) Lars/Lymph: Denies: easy bruising or easy bleeding PFS ED PFSH: Medical History Hypertension Social History Smoking and tobacco status: current every day smoker cigarettes NIH stroke score NIHSS: Level Of Consciousness - 1a: 0 Level Of Consciousness Questions - 1b: Both Correct Level Of Consciousness Commands - 1c: Both Correct Best Gaze - 2: Normal Visual Cody - 3: No Visual Loss Facial Palsy - 4: Normal Motor Arm Right - 5: No Drift Motor Arm Left - 5: No Drift Motor Leg Right - 6: No Drift Motor Leg Left - 6: No Drift Limb Ataxia - 7: Absent Sensory - 8: Normal Best Language - 9: No Aphasia Dysarthia - 10 : Normal Extinction And Inattention - 11: 0 Score: Total Score: 0 Physical Exam Const: COMMON NORMALS: no acute distress, patient oriented x3, no limitations and alert GENERAL APPEARANCE: cooperative and comfortable HENMT: HEAD & SCALP: normal to inspection FACE & SINUS: normal facial exam Eye: GENERAL EYE: appearance normal, both eyes and all related structures Neck/C-Spine: COMMON NORMALS: supple, no meningeal signs and no JVD Chest: COMMONS NORMALS: normal inspection of the chest Resp: COMMON NORMALS: normal respiratory effort, No use of accessory muscles and clear to auscultation bilaterally AUSCULTATION: clear to auscultation bilaterally Cardio: COMMON NORMALS: no JVD, regular rate, regular rhythm and No murmurs present (Cardio) RATE: regular rate RHYTHM: regular rhythm GI: COMMON NORMALS: Normal to inspection, nondistended, normoactive bowel sounds present, Soft to palpation and non-tender INSPECTION: Yes normal to inspection AUSCULTATION: Yes normoactive bowel sounds PALPATION: Yes Soft to palpation Back/Pelvis: COMMON NORMALS: thoracic and lumbar spine normal to inspection Extremity: COMMON NORMALS: normal to inspection Neuro: COMMON NORMALS: patient oriented x3, moves all extremities, no focal motor deficits and no sensory deficits noted SENSORIUM/ORIENTATION: Yes alert MENINGEAL SIGNS: Yes no meningeal signs CRANIAL NERVES: Yes CN normal exc ept as noted SPEECH: Other neuro speech findings (intermittent stuttering) MOTOR EXAM: 5/5 motor strength present throughout and Motor abnormalites present (shaking right arm and leg, and head - distractable) Psych: COMMON NORMALS: mental status grossly normal, cooperative and normal affect Skin: COMMON NORMALS: no rashes or lesions noted and turgor normal GENERAL SKIN EXAM: no rashes or lesions noted and turgor normal Course Vital Signs: Vital signs: Vital Signs Temperature 97.9 F 12/25/21 11:05 Pulse Rate 65 12/25/21 13:30 Respiratory Rate 15 12/25/21 13:30 Blood Pressure 130/90 12/25/21 14:11 Pulse Oximetry 98 12/25/21 13:30 Oxygen Delivery Me thod 12/25/21 11:05 MDM - Neuro Symptoms/Deficit Medical Decision Making No evidence at all of acute stroke. Really no neuro abnormalities on exam at all. The stuttering and shaking of the head, right arm, right leg are not consistent with any structural neurologic deficit. There is no numbness or motor weakness. The patient has been under a lot of stress and this may be a functional neurologic disorder. Work-up was negative. CT of the head did show some chronic changes that are stable since 2018 per radiology. The patient's blood pressure remained elevated while in the ER. He was given a dose of 0.1 mg of clonidine and his blood pressure was 130/90 when he was discharged. He was also given a dose of hydroxyzine for anxiety. He was very accepting of that as a diagnosis. He does have primary care at [facility]. He will follow-up with them. He was given prescriptions for hydroxyzine and clonidine as well. Lab Data : 12/25/21 11:22 12/25/21 11:[address] 12/25/21 11:26 IMPRESSION: No acute intracranial abnormality. Laboratory Results WBC 6.6 10^3/uL (4.0-10.0) 12/25/21 11: RBC 5.69 10^6/uL (4.1-5.3) H 12/25/21 11:22 Hgb 18.3 g/dL (11.7-16.6) H 12/25/21 11:22 Hct 54.2 % (42.0-52.0) H 12/25/21 11:22 MCV 95.3 fl (80-94) H 12/25/21 11:22 MCH 32.2 pg (28.0-34.0) 12/25/21 11:22 MCHC 33.8 g/dL (30.0-36.0) 12/25/21 11: RDW 12.9 % (12.1-15.1) 12/25/21 11: Plt Count 318 10^3/cmm (130-400) 12/25/21 11:22 MPV 9.7 fL (7.4-10.4) 12/25/21 11: Neut % (Auto) 58.0 % 12/25/21 11:22 Lymph % (Auto) 30.3 % 12/25/21 11:22 [place]alle % (Auto) 8.9 % 12/25/21 11:22 Eos % (Auto) 1.4 % 12/25/21 11: Baso % (Auto) 0.9 % 12/25/21 11: Neut # (Auto) 3.83 10^3/uL (1.8-7.7) 12/25/21 11: Lymph # (Auto) 2.0 10^3/uL (0.8-4.8) 12/25/21 11:22 [place]alle # (Auto) 0.6 10^3/uL (0.2-0.9) 12/25/21 11: Eos # (Auto) 0.1 10^3/uL (0.0-0.8) 12/25/21 11: Baso # (Auto) 0.1 10^3/uL (0.0-0.1) 12/25/21 11: Nucleated RBC % (auto) 0 % 12/25/21 11: Nucleated RBCs # 0.0 /100WBC 12/25/21 11:22 ESR 4 mm/hr (0-10) 12/25/21 11:22 Sodium 139 mmol/L (136-145) 12/25/21 11:22 Potassium 4.0 mmol/L (3.5-5.1) 12/25/21 11: Chloride 100 mmol/L (98-107) 12/25/21 11:22 Carbon Dioxide 28 mmol/L (22-29) 12/25/21 11:22 Anion Gap 15.0 (5-19) 12/25/21 11:22 BUN 12 mg/dL (6-20) 12/25/21 11:22 Creatinine 0.9 mg/dL (0.7-1.2) 12/25/21 11:22 GFR Calculation 91.7 mL/min (90-130) 12/25/21 11:22 Glucose 96 mg/dL (65-115) 12/25/21 11:22 POC Glucose 90 mg/dL (70-110) 12/25/21 11:18 Calculated Osmolality 288 mOsm/kg (285-295) 12/25/21 11:22 Calcium 9.6 mg/dL (8.5-10.5) 12/25/21 11:22 Magnesium 2.1 mg/dL (1.7-2.3) 12/25/21 11:22 Total Bilirubin 0.5 mg/dL (0.15-1.2) 12/25/21 11:22 AST 16 U/L (0-40) 12/25/21 11:22 ALT 11 U/L (0-41) 12/25/21 11:22 Alkaline Phosphatase 89 U/L (40-130) 12/25/21 11:22 Total Protein 7.9 g/dL (6.6-8.7) 12/25/21 11:22 Albumin 4.5 g/dL (3.5-5.2) 12/25/21 11:22 Globulin 3.4 g/dL (1.3-4.6) 12/25/21 11:22 Urine Color Yellow (Yellow) 12/25/21 13:27 Urine Appearance Clear (CLEAR) 12/25/21 13:27 Urine pH 7 (5-7) 12/25/21 13:27 Ur Specific [place] 1.010 (1.005-1.030) 12/25/21 13:27 Urine Protein Neg (Negative) 12/25/21 13:27 Urine Glucose (UA) Norm (Normal) 12/25/21 13:27 Urine Ketones Negative (Negative) 12/25/21 13:27 Urine Blood Neg (Negative) 12/25/21 13:27 Urine Nitrate Negative (Negative) 12/25/21 13:27 Urine Bilirubin Neg (Negative) 12/25/21 13:27 Urine Urobilinogen Norm mg/dL (Negative) 12/25/21 13:27 Ur Leukocyte Esterase Negative (Negative) 12/25/21 13:27 Urine Opiates Screen Negative ng/mL (Negative) 12/25/21 13:27 Ur Barbiturates Screen Negative ng/mL (Negative) 12/25/21 13:27 Ur Phencyclidine Scrn Negative ng/mL (Negative) 12/25/21 13:27 Ur Amphetamines Screen Negative ng/mL (Negative) 12/25/21 13:27 U Benzodiazepines Scrn Negative ng/mL (Negative) 12/25/21 13:27 Urine Cocaine Screen Negative ng/mL (Negative) 12/25/21 13:27 U Marijuana (THC) Screen Positive ng/mL (Negative) H 12/25/21 13:27 Ethyl Alcohol < 10 mg/dL (0-10) 12/25/21 11:22 Discharge Plan Discharge Patient Disposition: Home Clinical Impression: Hypertension, Anxiety, Functional neurological symptom disorder with abnormal movement Condition: Stable Prescriptions: New clonidine HCl 0.1 mg tablet 0.1 mg PO BID Qty: 60 0RF hydroxyzine HCl 50 mg tablet 50 mg PO Q8H PRN (Reason: anxiety) Qty: 30 0RF No Action ProAir HFA 90 mcg/actuation HFA aerosol inhaler 2 inh inhalation Q6H PRN (Reason: shortness of breath or wheezing) Qty: 18 0RF amlodipine 10 mg tablet 10 mg Discharge Orders: Discharge ED (Routine); Ordered 12/25/21 Ordered By: Lidia Jarquin Discharge Diet: Usual diet Discharge Activity: Resume usual activity Patient Instructions: Opioid Safety, Pain Management Activity Restrictions/Additional Instructions: Follow-up with your primary care physician for further evaluation of your symptoms. Return to the ER if any new or worse symptoms occur. Coding Level of Care Code ED Earth Science Laboratory Technician for Jazmyng Fwd Exam Comprehensive
[2021-12-25 13:52] LABS: Add Urine Microscopic? NO; Charge for UA Resulting for Rev
[2021-12-25 13:54] LABS: Protein Urine Neg (Negative); Urine Appearance Clear (CLEAR); Urine Color Yellow (Yellow); pH Urine 7 (5-7)
[2021-12-25 13:55] LABS: Bilirubin Urine Neg (Negative); Blood Urine Neg (Negative); Glucose Urine UA Norm (Normal); Ketones Urine Negative (Negative); Leukocyte Esterase Urine Negative (Negative); Nitrate Urine Negative (Negative); Urobilinogen Urine Norm (Negative)
[2021-12-25 14:04] LABS: Amphetamines Screen Urine Negative (Negative); Barbiturates Screen Urine Negative (Negative); Benzodiazepines Screen Urine Negative (Negative); Cocaine Screen Urine Negative (Negative); Opiate Screen Urine Negative (Negative); PCP Screen Urine Negative (Negative); THC Screen Urine Positive (Negative)
[2021-12-25] MEDS: cloNIDine 0.1 mg Tablet PO (14:11)
[2021-12-25] MEDS: hyDROXYzine 25 mg Capsule 50 MG PO (14:21)
== END 2021-12-25 14:31 | disposition home or self-care (01) ==
PROVIDERS: Emergency Provider Emergency Medicine
DX: F44.4 Conversion disorder with motor symptom or deficit (principal); I10 Essential (primary) hypertension; F41.9 Anxiety disorder, unspecified; F17.210 Nicotine dependence, cigarettes, uncomplicated
CPT/HCPCS: 36416; 70450; 80053; 80306; 80307; 81003; 82962; 83735; 85025; 85651; 99285

== ENCOUNTER 2022-02-08 07:23 | Emergency (ER) | payer BC, MEDICAID, SELFPAY ==
[2022-02-08 07:31] VITALS: BP 179/99; PULSE 85; TEMP 36.6; O2SAT 98; BMI 25.7
--- NOTE | 2022-02-08 07:42 | W.ED.EYEPROB ---
Documented by User: FIORELLA Ruth 02/08/22 08:33 HPI - Eye Problem General: Chief complaint: Eye Problems Stated complaint: something in his eye Time Seen by Provider: 02/08/22 07:24 History of Present Illness: Patient is a 46-year-old male comes to the ED with left eye complaint. Patient says he was hanging drywall yesterday afternoon and something fell into his left eye. He has tried flushing it out under water but he still feels like there is something in his left eye. Endorses eye pain that he rates an 8 out of 10. He wears glasses and does not wear any contacts. Denies any vision changes. Patient is up-to-date on his tetanus. Associated symptoms: Denies fever(s), headache(s), nausea, neck pain or vomiting Review of Systems Const: Denies: fever(s), chills or fatigue Eyes: Reports: eye discomfort (Feels like foreign body got in left eye); Denies: change in vision ENMT: Denies: throat pain, odynophagia, nasal discharge or nasal congestion Card: Denies: chest pain, palpitations, edema, swelling of feet/ankles, dyspnea on exertion or orthopnea Resp: Denies: dyspnea, productive cough or non-productive cough GI: Denies: abdominal pain, nausea, vomiting, diarrhea, constipation or hematochezia : Denies: flank pain, difficulty urinating, dysuria or hematuria Musc: Denies: neck pain, back pain or extremity swelling Skin/Breast: Denies: rash or new lesions Neuro: Denies: headache(s), numbness in extremities or weakness in extremities PFS ED PFSH: Medical History Hypertension No pertinent family history Social History Smoking and tobacco status: current every day smoker cigarettes Physical Exam Const: COMMON NORMALS: no acute distress, patient oriented x3 and alert HENMT: COMMON NORMALS: normocephalic HEAD & SCALP: normocephalic MOUTH: Normal oral and palatal mucosa present THROAT: posterior oropharynx normal and uvula midline Eye: COMMON NORMALS: Equal, round and reactive pupils present and EOMs intact bilaterally CONJUNCTIVA: Yes conjunctival abnormal positive left conjunctival injection diffuse PUPIL: Yes Equal, round and reactive pupils present OTHER: Exam of left hand?small foreign body seen on eye. Fluorescein dye eye exam performed and it did light up a small corneal abrasion on the eye. Neck/C-Spine: COMMON NORMALS: supple GENERAL: Yes normal visual inspection Resp: COMMON NORMALS: normal respiratory effort, No retractions, No use of accessory muscles and clear to auscultation bilaterally AUSCULTATION: clear to auscultation bilaterally Cardio: COMMON NORMALS: regular rate, regular rhythm, S1 normal heart sound present, S2 normal heart sound present, No gallops present (Cardio), No clicks present (Cardio), No murmurs present (Cardio) and Peripheral pulses 2+ throughout RATE: regular rate RHYTHM: regular rhythm HEART SOUNDS: S1 normal heart sound present and S2 normal heart sound present PERIPHERAL PULSES: Peripheral pulses 2+ throughout GI: COMMON NORMALS: Normal to inspection, nondistended, normoactive bowel sounds present, Soft to palpation, non-tender and no masses PALPATION: Yes Soft to palpation : COMMON NORMALS: Yes no CVA tenderness BLADDER/KIDNEY EXAM: Yes no CVA tenderness Back/Pelvis: COMMON NORMALS: no CVA tenderness Extremity: COMMON NORMALS: normal to inspection Neuro: COMMON NORMALS: patient oriented x3 SENSORIUM/ORIENTATION: Yes alert GAIT: Yes Normal gait present Skin: GENERAL SKIN EXAM: dry skin Procedures FB Removal Eye Time Out performed: Yes Location: eye (L) Topical anesthetic used: tetracaine Foreign body: metal Evidence of corneal penetration: Yes Technique: irrigation and cotton tip swab Procedure performed under: direct visualization with magnification Post-procedure medication: ophthalmic antibiotic and topical anesthetic Patient tolerated procedure: well Complications: corneal penetration Course Vital Signs: Vital signs: Vital Signs Temperature 97.9 F 02/08/22 07:31 Pulse Rate 85 02/08/22 07:31 Blood Pressure 179/99 02/08/22 07:31 Pulse Oximetry 98 02/08/22 07:31 Oxygen Delivery Me thod 02/08/22 07:31 MDM - Eye Problem Medical Decision Making Patient is a 46-year-old male comes to the ED with left eye complaint. Patient says he was hanging drywall yesterday afternoon and something fell into his left eye. He has tried flushing it out under water but he still feels like there is something in his left eye. Endorses eye pain that he rates an 8 out of 10. Denies any vision changes. Patient wears glasses but does not wear any contacts. Patient is up-to-date on his tetanus. Vitals are stable. Upon exam foreign body was seen in eye and tetracaine was used on eye as local and I was able to remove metal appearing foreign body with irrigation and cotton tip swab. He was stable for discharge home and sent home with a prescription for erythromycin optic ointment and hydrocodone for pain. Patient was instructed on calling [facility] and get an appointment set up with them for further evaluation. Patient understood and agreed with plan. Discharge Plan Discharge Patient Disposition: Home Clinical Impression: Foreign body in eye Qualifiers: Encounter type: initial encounter Laterality: left Qualified Code(s): T15.92XA - Foreign body on external eye, part unspecified, left eye, initial encounter Condition: Stable Prescriptions: No Action ProAir HFA 90 mcg/actuation HFA aerosol inhaler 2 inh inhalation Q6H PRN (Reason: shortness of breath or wheezing) Qty: 18 0RF amlodipine 10 mg tablet 10 mg clonidine HCl 0.1 mg tablet 0.1 mg PO BID Qty: 60 0RF hydroxyzine HCl 50 mg tablet 50 mg PO Q8H PRN (Reason: anxiety) Qty: 30 0RF Discharge Orders: Discharge ED (Routine); Ordered 02/08/22 Ordered By: Dudley Stanley Discharge Diet: Regular Discharge Activity: Increase activity as tolerated Patient Instructions: Foreign Body - Eye, Opioid Safety Activity Restrictions/Additional Instructions: Follow-up with medical provider as directed. Call [facility] to set up an appointment for follow-up with them. Phone number is [phone]. Address is [facility] [address] Rigoberto Muniz. take medications as prescribed. Return to the ER or your medical provider if condition worsens. Please read and understand discharge instructions. If any questions, please ask. Coding Level of Care Code ED Dog Or Animal Sitter for Chg Fwd Exam Comprehensive Documented by User: Marlon Negrete DO 02/13/22 08:34 HPI - Eye Problem General: Chief complaint: Eye Problems Stated complaint: something in his eye Time Seen by Provider: 02/08/22 07:24 [facility] ED PFSH: Medical History Hypertension No pertinent family history Social History Smoking and tobacco status: current every day smoker cigarettes Course Vital Signs: Vital signs: Vital Signs Temperature 97.9 F 02/08/22 07:31 Pulse Rate 85 02/08/22 07:31 Blood Pressure 179/99 02/08/22 07:31 Pulse Oximetry 98 02/08/22 07:31 Oxygen Delivery Me thod 02/08/22 07:31 MDM - Eye Problem Medical Decision Making Patient is a 46-year-old male comes to the ED with left eye complaint. Patient says he was hanging drywall yesterday afternoon and something fell into his left eye. He has tried flushing it out under water but he still feels like there is something in his left eye. Endorses eye pain that he rates an 8 out of 10. Denies any vision changes. Patient wears glasses but does not wear any contacts. Patient is up-to-date on his tetanus. Vitals are stable. Upon exam foreign body was seen in eye and tetracaine was used on eye as local and I was able to remove metal appearing foreign body with irrigation and cotton tip swab. He was stable for discharge home and sent home with a prescription for erythromycin optic ointment and hydrocodone for pain. Patient was instructed on calling [facility] and get an appointment set up with them for further evaluation. Patient understood and agreed with plan. Chart reviewed and patient discussed with midlevel. Agree with assessment and plan. Discharge Plan Discharge Patient Disposition: Home Clinical Impression: Foreign body in eye Qualifiers: Encounter type: initial encounter Laterality: left Qualified Code(s): T15.92XA - Foreign body on external eye, part unspecified, left eye, initial encounter Condition: Stable Prescriptions: No Action ProAir HFA 90 mcg/actuation HFA aerosol inhaler 2 inh inhalation Q6H PRN (Reason: shortness of breath or wheezing) Qty: 18 0RF amlodipine 10 mg tablet 10 mg clonidine HCl 0.1 mg tablet 0.1 mg PO BID Qty: 60 0RF hydroxyzine HCl 50 mg tablet 50 mg PO Q8H PRN (Reason: anxiety) Qty: 30 0RF Discharge Orders: Discharge ED (Routine); Ordered 02/08/22 Ordered By: Dudley Stanley Discharge Diet: Regular Discharge Activity: Increase activity as tolerated Patient Instructions: Foreign Body - Eye, Opioid Safety Activity Restrictions/Additional Instructions: Follow-up with medical provider as directed. Call [facility] to set up an appointment for follow-up with them. Phone number is [phone]. Address is [facility] [address] Rigoberto Muniz. take medications as prescribed. Return to the ER or your medical provider if condition worsens. Please read and understand discharge instructions. If any questions, please ask. Coding Level of Care Code ED Dog Or Animal Sitter for Jose Antonio Fwd Exam Comprehensive
[2022-02-08] MEDS: tetracaine 0.5% Op Soln 4 mL Btl 1 DROP EYE-LEFT (07:55)
[2022-02-08] MEDS: eye irrigation 30 mL Btl EYE-LEFT (07:55)
[2022-02-08] MEDS: fluorescein 1 mg Strip EYE-LEFT (07:55)
== END 2022-02-08 08:20 | disposition home or self-care (01) ==
PROVIDERS: Emergency Provider Physician Assistant
DX: T15.92XA Foreign body on external eye, part unspecified, left eye, initial encounter (principal); I10 Essential (primary) hypertension; F17.210 Nicotine dependence, cigarettes, uncomplicated; X58.XXXA Exposure to other specified factors, initial encounter
CPT/HCPCS: 65205; 99283

== ENCOUNTER 2022-03-16 16:22 | Emergency (ER) | payer BC, MEDICAID, SELFPAY ==
[2022-03-16 16:25] VITALS: BP 169/107; PULSE 84; RESP 18; O2SAT 97
--- NOTE | 2022-03-16 17:17 | ED_ITS ---
HPI - Nausea/Vomiting/Diarrhea General: Chief complaint: Nausea/Vomiting/Diarrhea Stated complaint: SOB, cough, n/v Time Seen by Provider: 03/16/22 17:13 History of Present Illness: 46-year-old male patient comes in today with persistent coughing and episodes of emesis. Patient appears unwell but not toxic. Respirations are even. Patient has frequent cough. Patient has a history of hypertension and functional neurologic symptoms with abnormal movement. Patient does report a history of respiratory difficulty and diagnosis of asthma and frequent bronchitis. Review of Systems Const: Reports: chills Resp: Reports: dyspnea, non-productive cough and wheezing GI: Reports: vomiting PFSH ED PFSH: Medical History Hypertension No pertinent family history Social History Smoking and tobacco status: current every day smoker cigarettes Physical Exam Const: COMMON NORMALS: alert HENMT: COMMON NORMALS: normocephalic HEAD & SCALP: normocephalic Neck/C-Spine: COMMON NORMALS: full ROM and no meningeal signs Resp: COMMON NORMALS: normal respiratory effort AUSCULTATION: wheezes GI: COMMON NORMALS: non-tender Extremity: COMMON NORMALS: normal to inspection Neuro: SENSORIUM/ORIENTATION: Yes alert MENINGEAL SIGNS: Yes no meningeal signs Skin: COMMON NORMALS: no rashes or lesions noted GENERAL SKIN EXAM: no rashes or lesions noted Course Vital Signs: Vital signs: Vital Signs Pulse Rate 68 03/16/22 17:49 Respiratory Rate 18 03/16/22 17:45 Blood Pressure 169/107 03/16/22 16:25 Pulse Oximetry 95 03/16/22 17:45 Oxygen Delivery Me thod 03/16/22 17:45 MDM - Nausea/Vomiting/Diarrhea Medical Decision Making 46-year-old male patient comes in today for complaints of persistent coughing for the last 4 days. Patient is also reported some body aches. Patient's last cigarette was 3 days ago. On exam patient has wheezing throughout lung martinez. Abdomen is nontender. Skin is warm and dry. Vital signs are normal except for some mild elevation of blood pressure. Differential diagnosis includes but not limited to exacerbation of asthma, COPD, acute bronchitis, pneumonia. Chest x- ray was unremarkable. I believe patient probably has bronchitis secondary to his smoking. We will go ahead and treat with albuterol inhaler, doxycycline, and Promethazine DM for cough. Patient was also given 10 mg of dexamethasone in the emergency department for wheezing and cough. Encourage plenty of fluids and follow-up with primary care return to ED for worsening symptoms or new concerns. Lab Data Radiology Impressions Chest X-Ray 03/16/22 17:25 IMPRESSION: No acute findings. Discharge Plan Discharge Patient Disposition: Home Clinical Impression: Bronchitis Condition: Stable Prescriptions: New doxycycline monohydrate 100 mg capsule 100 mg PO BID 7 Days Qty: 14 0RF promethazine-DM 6.25-15 mg/5 mL syrup 5 ml PO Q6H PRN (Reason: cough) Qty: 118 0RF Continued albuterol sulfate 90 mcg/actuation HFA aerosol inhaler 2 inh inhalation Q6H PRN (Reason: shortness of breath or wheezing) Qty: 18 0RF No Action amlodipine 10 mg tablet 10 mg clonidine HCl 0.1 mg tablet 0.1 mg PO BID Qty: 60 0RF hydroxyzine HCl 50 mg tablet 50 mg PO Q8H PRN (Reason: anxiety) Qty: 30 0RF Discharge Orders: Discharge ED (Routine); Ordered 03/16/22 Ordered By: Scott Benson Discharge Diet: Usual diet Discharge Activity: Increase activity as tolerated Patient Instructions: Acute Bronchitis (ED) Activity Restrictions/Additional Instructions: Take antibiotics as directed. Drink plenty of fluids with medications. Use albuterol inhaler 2 puffs every 4-6 hours as needed for cough or wheezing. Use Promethazine DM for persistent cough and nausea. Follow-up with primary care in 2 to 3 days for recheck. Return to ED for worsening symptoms or new concerns. Coding Level of Care Code ED Inspector Watch Train for Jose Antonio Fwmarium Exam Detailed
--- NOTE | 2022-03-16 17:25 | XRR_ITS ---
PROCEDURE INFORMATION: Exam: XR Chest Exam date and time: 03/16/2022 5:34 PM Age: 46 years old Clinical indication: Cough and wheezing TECHNIQUE: Imaging protocol: Radiologic exam of the chest. Views: 2 views. COMPARISON: CT chest w con* [id number] 04/19/2021 10:18 AM FINDINGS: Lungs: Lungs are clear. Pleural spaces: There is no pleural effusion or pneumothorax. Heart/Mediastinum: Cardiomediastinal contours are unremarkable. Bones/joints: Bones are unremarkable. XR/XR chest 2V* [id number] IMPRESSION: No acute findings.
[2022-03-16] MEDS: dexamethasone 10 mg/mL INJ IM (17:32)
[2022-03-16 17:45] VITALS: PULSE 74; RESP 18; O2SAT 95
[2022-03-16] MEDS: ipratropium-albuterol 3 mL Neb INHALATION (17:46)
[2022-03-16 17:49] VITALS: PULSE 68
[2022-03-16] MEDS: ondansetron 4 MG Tablet PO (18:09)
[2022-03-16] MEDS: doxycycline 100 mg Tablet PO (18:09)
== END 2022-03-16 18:18 | disposition home or self-care (01) ==
PROVIDERS: Emergency Provider Nurse Practitioner Family; PCP Family Medicine
DX: J40 Bronchitis, not specified as acute or chronic (principal); I10 Essential (primary) hypertension; F17.210 Nicotine dependence, cigarettes, uncomplicated
CPT/HCPCS: 71046; 94640; 96372; 99284; J1100; Q0162

== ENCOUNTER 2022-11-13 08:01 | Emergency (ER) | payer MEDICAID, SELFPAY ==
[2022-11-13 08:08] VITALS: BP 171/129; PULSE 72; RESP 22; TEMP 36.6; O2SAT 98; BMI 26.4
--- NOTE | 2022-11-13 08:09 | ED_ITS ---
HPI - Neck Pain/Injury General: Chief Complaint: Neck Pain/Injury Stated Complaint: neck injury Time Seen by Provider: 11/13/22 08:03 Source: patient Mode of arrival: ambulatory Limitations: no limitations History of Present Illness: Patient is a 47-year-old male who presents to ED today with a complaint of right-sided neck and shoulder pain that began a few days ago after he was climbing a rock wall and states he was pulling himself up when he immediately felt something pull to his right posterior neck and shoulder region. He states he has had pain since. Pain seems to be worse with range of motion of the right shoulder as well as rotation of the neck. He states about 5 or 6 weeks ago he had a piece of sheet rock fall on his head and had some neck pain following this but that seemed to improve on its own and go away until the injury today. He denies numbness, tingling, weakness to his upper extremities. Denies headache. MD complaint: neck injury Onset (ago): day(s) Place: street/outdoors Radiation: right lateral and right shoulder Severity: severe Severity scale (1-10): 10 Duration: constant Relieving factors: immobilization Exacerbating factors: movement of extremity and movement of neck Context: turning/bending Associated symptoms: Reports no associated symptoms; Denies dizziness, headache(s) or nausea Review of Systems Const: Denies: fever(s), chills, body aches, fatigue or malaise Eyes: Denies: change in vision, blurry vision, photophobia, floaters or seeing flashes ENMT: Denies: throat pain or odynophagia Card: Denies: chest pain Resp: Denies: dyspnea GI: Denies: nausea or vomiting Musc: Reports: neck pain; Denies: back pain, extremity pain, extremity swelling, joint pain, joint swelling or muscle weakness Skin/Breast: Denies: rash Neuro: Denies: headache(s), numbness in extremities, weakness in extremities, sensory changes or dizziness PFS ED PFSH: Medical History Hypertension No pertinent family history Social History Smoking and tobacco status: current every day smoker cigarettes Physical Exam Const: COMMON NORMALS: no acute distress, average body habitus, patient oriented x3, no limitations, healthy appearing, alert and well nourished GENERAL APPEARANCE: cooperative ORIENTATION/CONSCIOUSNESS: Yes awake, Yes oriented to person, Yes oriented to place and Yes oriented to time HENMT: COMMON NORMALS: normocephalic and atraumatic HEAD & SCALP: normal to inspection, normocephalic and atraumatic Neck/C-Spine: COMMON NORMALS: no lymphadenopathy, supple, no meningeal signs, no JVD, Thyroid normal and No carotid bruits GENERAL: Yes normal visual inspection, No anterior neck swelling and No submandibular swelling THYROID: Thyroid normal CERVICAL SPINE: Yes pain with cervical ROM with lateral flexion to the left and with rotation to the right, Yes Cervical spine tenderness, No step off deformity, Yes Paracervical muscle tenderness and Yes Trapezius muscle tenderness right Resp: COMMON NORMALS: normal respiratory effort and clear to auscultation bilaterally AUSCULTATION: clear to auscultation bilaterally Cardio: COMMON NORMALS: no JVD, regular rate and regular rhythm RATE: regular rate RHYTHM: regular rhythm Back/Pelvis: COMMON NORMALS: thoracic and lumbar spine normal to inspection, no thoracic nor lumbar tenderness and thoraco-lumbar ROM normal Extremity: COMMON NORMALS: normal to inspection GENERAL: Yes normal exam except as noted RIGHT UPPER EXTREMITY: Yes shoulder joint (limited ROM as this exacerbates neck/posterior shoulder pain) Right shoulder: Yes Right shoulder joint neurovascular exam (normal) Neuro: COMMON NORMALS: patient oriented x3, moves all extremities, no focal motor deficits and no sensory deficits noted SENSORIUM/ORIENTATION: Yes alert, Yes oriented to person, Yes oriented to place and Yes oriented to time MENINGEAL SIGNS: Yes no meningeal signs Skin: COMMON NORMALS: no rashes or lesions noted GENERAL SKIN EXAM: no rashes or lesions noted Course Vital Signs: Vital signs: Vital Signs Temperature 97.8 F 11/13/22 08:08 Pulse Rate 72 11/13/22 08:08 Respiratory Rate 22 H 11/13/22 08:08 Blood Pressure 171/129 11/13/22 08:08 Pulse Oximetry 98 11/13/22 08:08 Oxygen Delivery Me thod Room Air 11/13/22 08:08 MDM - Neck Pain/Injury Medical Decision Making Patient here with pain to the posterior aspect of his right neck and overlying his right posterior shoulder/trapezius musculature following a pulling injury. Pain is easily reproducible on exam. He gained relief from IM steroids, anti- inflammatories, NSAIDs. He has no neurologic deficits. At this time patient will be discharged on similar medications given here. Recommend follow-up with primary care provider in approximately a week or so if symptoms do not seem to be improving. He is requesting cervical collar prior to discharge. I think this is unnecessary but he is persistent. Discussed how I would like him to remove often for gentle passive ROM. Return to ED precautions given. Differential Diagnosis Likely disc disorder of cervical region, torticollis and strain of neck muscle Discharge Plan Discharge Patient Disposition: Home Clinical Impression: Strain of neck muscle Qualifiers: Encounter type: initial encounter Qualified Code(s): S16.1XXA - Strain of muscle, fascia and tendon at neck level, initial encounter Condition: Stable Prescriptions: New methocarbamol 500 mg tablet 1,000 mg PO Q8H Qty: 30 0RF diclofenac sodium 50 mg tablet,delayed release (DR/EC) 50 mg PO Q12H PRN (Reason: pain) Qty: 20 0RF Medrol (Usama) 4 mg tablets,dose pack See Rx Instructions .ROUTE .COMPLEX Qty: 21 0RF Rx Instructions: orally per package directions No Action amlodipine 10 mg tablet 10 mg clonidine HCl 0.1 mg tablet 0.1 mg PO BID Qty: 60 0RF hydroxyzine HCl 50 mg tablet 50 mg PO Q8H PRN (Reason: anxiety) Qty: 30 0RF promethazine-DM 6.25-15 mg/5 mL syrup 5 ml PO Q6H PRN (Reason: cough) Qty: 118 0RF albuterol sulfate 90 mcg/actuation HFA aerosol inhaler 2 inh inhalation Q6H PRN (Reason: shortness of breath or wheezing) Qty: 18 0RF Discharge Orders: Discharge ED (Routine); Ordered 11/13/22 Ordered By: Herminia Acosta Referrals: Estrellita Calvert DO [Primary Care Provider] - Patient Instructions: Cervical Strain (DC), Muscle Spasm (ED) Coding Level of Care Code ED It Support Specialist for Jose Antonio Schulz
--- NOTE | 2022-11-13 08:15 | XR_ITS ---
WS: [id number] Exam: XR cervical spine 3V* [id number] Date/Time of Exam: 11/13/2022 8:16 AM Reason For Exam: injury/pain Comparison 02/18/2019. No acute fracture or dislocation. There is straightening with loss of the normal cervical lordosis. M ild spondylosis from C4-C7. Slight disc space narrowing at C6-7. Mild facet DJD. Paraspinal soft tiss ues appear normal. The odontoid is intact. IMPRESSION1. Straightening and mild degenerative changes. No fracture or malalignment.
[2022-11-13] MEDS: dexamethasone 10 mg/mL INJ 8 MG IM (08:21)
[2022-11-13] MEDS: orphenadrine 30 mg/mL Inj 2 mL 60 MG IM (08:22)
[2022-11-13] MEDS: ketorolac 60 mg/2 mL INJ IM (08:24)
== END 2022-11-13 09:31 | disposition home or self-care (01) ==
PROVIDERS: Emergency Provider Physician Assistant; PCP Family Medicine
DX: S16.1XXA Strain of muscle, fascia and tendon at neck level, initial encounter (principal); I10 Essential (primary) hypertension; F17.210 Nicotine dependence, cigarettes, uncomplicated; X50.9XXA Other and unspecified overexertion or strenuous movements or postures, initial encounter; Y93.31 Activity, mountain climbing, rock climbing and wall climbing
CPT/HCPCS: 72040; 96372; 99284; J1100; J1885; J2360

== ENCOUNTER 2023-01-22 11:32 | Outpatient (CLI) | payer MEDICAID, SELFPAY ==
[2023-01-22 11:38] VITALS: BMI 26.4
--- NOTE | 2023-01-22 11:41 | ECG_ITS ---
[facility] Test Date: 2023-01-22 Pat Name: Lewis Lord Department: Room: Gender: Male Director Fixed Income: Richy Banerjee : 1975 Requested By: Estrellita Weinberg Order Number: [id number] Fredy MD: Bjorn Reagan M.D. Interpretive Statements NAME OF STUDY: TREADMILL STRESS TEST INDICATION: Chest Pain, PROCEDURE: At the baseline, the patient's blood pressure was 144/105 with a heart rate of 93. The baseline electrocardiogram showed normal sinus rhythm with normal ST-Ts.. The patient exercised for 9 minutes and 58 seconds on a standard Carlos protocol. Patient attained a maximum heart rate of 150 beats per minute(85% of the maximum predicted heart rate) with a blood pressure at the peak exercise of 150/107 mm Hg. The EKG at the peak exercise revealed no significant changes. Patient did not have any chest pain or any significant cardiac arrhythmias with the exercise During the recovery phase, there were no new changes. Blood pressure at the end of the recovery phase was 134/98 mm Hg with a heart rate of 93 per minute. CONCLUSION: 1. Normal EKG response to treadmill exercise 2. No exercise-induced chest pain or cardiac arrhythmia 3. Fair exercise tolerance, attained a maximum of 10.9 METs Electronically Signed On 01-26-2023 12:19:29 [employer] by Bjorn Reagan M.D. [email or web address]
[2023-01-22 12:57] VITALS: BP 134/98; PULSE 93
== END 2023-01-22 11:33 | disposition home or self-care (01) ==
LOC: CDL 11:32
PROVIDERS: PCP Family Medicine; Visit Provider Family Medicine
DX: R07.89 Other chest pain (principal)
CPT/HCPCS: 93017

== ENCOUNTER 2023-01-23 12:56 | Outpatient (CLI) | payer MEDICAID, SELFPAY ==
--- NOTE | 2023-01-23 13:14 | XRR_ITS ---
PROCEDURE INFORMATION: Exam: XR Right Foot Exam date and time: 01/23/2023 1:26 PM Age: 47 years old Clinical indication: Pain; Foot; Right; Additional info: R foot pain TECHNIQUE: Imaging protocol: Radiologic exam of the right foot. Views: 3 or more views. COMPARISON: CR XR foot RT min 3V* [id number] 01/23/2019 4:29 PM FINDINGS: Bones/joints: Normal. No fracture or dislocation. No acute osseous or joint abnormality. Mild calcaneal spurring. Soft tissues: Normal. XR/XR foot RT min 3V* [id number] IMPRESSION: No acute findings.
== END 2023-01-23 12:57 | disposition home or self-care (01) ==
PROVIDERS: PCP Family Medicine; Visit Provider Nurse Practitioner Family
DX: M79.671 Pain in right foot (principal)
CPT/HCPCS: 73630

== ENCOUNTER 2024-05-03 08:43 | Emergency (ER) | payer MEDICAID, SELFPAY ==
[2024-05-03 08:55] VITALS: BP 165/108; PULSE 66; RESP 18; TEMP 36.7; O2SAT 96
--- NOTE | 2024-05-03 09:20 | ED_ITS ---
HPI - Back Pain/Injury 2 General: Chief Complaint: Back Pain/Injury Stated Complaint: unable to walk Time Seen by Provider: 05/03/24 08:47 History of Present Illness: 48-year-old male presents to the emergen cy room with complaints of left leg pain low back pain. Does not remember particular precipitating event he has had problems with back pain in the past. He states that his urine output has decreased as well. He denies any fecal incontinence. Associated symptoms: Deny abdominal pain, chills, dysuria, fever(s) or urinary urgency Related Data Home Medications ?Medication ?Instructions ?Recorded ?Confirmed gabapentin 800 mg tablet 800 mg PO QPM 05/03/2405/03 Previous Rx's ?Medication ?Instructions ?Recorded diclofenac sodium 75 mg 75 mg PO Q12H PRN pain #20 t abs 05/03/24 tablet,delayed release hydrocodone 5 mg-acetaminophen 325 1 tab PO Q6H PRN pa in #20 tabs 05/03/24 mg tablet prednisone 20 mg tablet 20 mg PO TID #15 tabs tizanidine 4 mg tablet 4 mg PO Q6H PRN muscle spast icity 05/03/24 #20 tabs Allergies Allergy/AdvReac Type Severity Reaction Status Date / Time codeine Allergy Unknown Verified 04/10/24 08:01 Review of Systems 2 Const: Denies: fever(s) or chills Card: Denies: chest pain Resp: Denies: dyspnea GI: Denies: abdominal pain : Denies: dysuria, urinary frequency or urinary urgency Musc: Denies: neck pain or back pain Skin/Breast: Denies: rash PFSH ED 2 PFSH: Medical History No pertinent family history Hypertension Social History Smoking and tobacco/nicotine status: current every day tobacco/nicotine user (.5 PPD) cigarettes Physical Exam 2 Const: GENERAL APPEARANCE: cooperative ORIENTATION/CONSCIOUSNESS: Yes awake, Yes oriented to person, Yes oriented to place and Yes oriented to time HENMT: COMMON NORMALS: normocephalic, atraumatic and hearing grossly normal bilaterally HEAD & SCALP: normocephalic and atraumatic Resp: COMMON NORMALS: normal respiratory effort, No retractions, No use of accessory muscles and clear to auscultation bilaterally AUSCULTATION: clear to auscultation bilaterally Cardio: COMMON NORMALS: regular rate, regular rhythm and No murmurs present (Cardio) RATE: regular rate RHYTHM: regular rhythm GI: COMMON NORMALS: Soft to palpation and No hepatosplenomegaly present A USCULTATION: Yes normoactive bowel sounds PALPATION: Yes Soft to palpation, No Tenderness to palpation present (GI), No Guarding due to palpation present (GI) and Yes No hepatosplenomegaly present Extremity: COMMON NORMALS: normal to inspection, capillary refill normal, no clubbing, cyanosis or edema, no calf tenderness and no pedal edema OTHER: Deep tendon reflexes in the lower extremities plus to 4. Sensation lower extremities normal dorsum plantarflexion 5/5. Neuro: SENSORIUM/ORIENTATION: Yes oriented to person, Yes oriented to place and Yes oriented to time Skin: COMMON NORMALS: no rashes or lesions noted GENERAL SKIN EXAM: no rashes or lesions noted Course 2 Vital Signs: Vital signs: Vital Signs Temperature 98.0 F 05/03/24 08:55 Pulse Rate 71 05/03/24 11:45 Respiratory Rate 16 05/03/24 11:28 Blood Pressure 157/92 05/03/24 11:45 Pulse Oximetry 97 05/03/24 11:45 MDM - Back Pain/Injury Medical Decision Making Improved with steroids narcotic prednisone. Discharge home with a prednisone taper to begin tomorrow as well as tizanidine hydrocodone and diclofenac. Set him up to follow-up with orthopedic spine surgery. CT reviewed with the patient there does appear to be L5-S1 Disc bulge on the left consistent with his symptoms. Labs 05/03/24 09:44 05/03/24 09:44 Radiology Impressions Lumbar Spine CT 05/03/24 09:35 IMPRESSION: 1. Multilevel degenerative changes of the lumbar spine as outlined above. If symptoms persist, consider further evaluation with MRI, if there are no contraindications to obtaining a MRI scan. 2. Nonspecific left adrenal nodule which may represent an adrenal adenoma. This however is not identified on prior CT scan dated 04/30/2015. Other etiologies cannot be entirely excluded. Recommend clinical correlation and follow-up imaging as clinically warranted. COMMENTS: Consistent with the [employer]'s Incidental Findings Committee white paper (J Am Beena Radiol 2017): For any incidental adrenal lesion greater than or equal to 1 cm but less than or equal to 4 cm classified in this report as benign, likely benign, or containing fat (including classification as an adenoma or myelolipoma), no follow-up imaging is recommended per consensus recommendations based on imaging criteria. Further lab evaluation could be pursued if warranted based on clinical findings. Laboratory Results WBC 7.93 10^3/uL (3.29-11.43) 05/03/24 09:44 RBC 5.25 10^6/uL (3.85-5.65) 05/03/24 09:44 Hgb 16.60 g/dL (11.27-16.99) 05/03/24 09:44 Hct 48.9 % (37-53) 05/03/24 09:44 MCV 93.1 fl (82-101) 05/03/24 09:44 MCH 31.6 pg (27-33) 05/03/24 09:44 MCHC 33.9 g/dL (30-55) 05/03/24 09:44 RDW 13.0 % (12.1-15.1) 05/03/24 09:44 Plt Count 272 10^3/cmm (157-399) 05/03/24 09:44 MPV 9.3 fL (7.4-10.4) 05/03/24 09:44 Neut % (Auto) 62.7 % 05/03/24 09:44 Lymph % (Auto) 23.0 % 05/03/24 09:44 [place] % (Auto) 10.5 % 05/03/24 09:44 Eos % (Auto) 2.8 % 05/03/24 09:44 Baso % (Auto) 0.6 % 05/03/24 09:44 Neut # (Auto) 4.98 10^3/uL (1.8-7.7) 05/03/24 09:44 Lymph # (Auto) 1.8 10^3/uL (0.8-4.8) 05/03/24 09:44 [place] # (Auto) 0.8 10^3/uL (0.2-0.9) 05/03/24 09:44 Eos # (Auto) 0.2 10^3/uL (0.0-0.8) 05/03/24 09:44 Baso # (Auto) 0.1 10^3/uL (0.0-0.1) 05/03/24 09:44 Nucleated RBC % (auto) 0 % 05/03/24 09:44 Nucleated RBCs # 0.0 /100WBC 05/03/24 09:44 Sodium 135 mmol/L (136-145) L 05/03/24 09:44 Potassium 4.1 mmol/L (3.5-5.1) 05/03/24 09:44 Chloride 102 mmol/L (98-107) 05/03/24 09:44 Carbon Dioxide 25 mmol/L (22-29) 05/03/24 09:44 Anion Gap 12.1 (5-19) 05/03/24 09:44 BUN 15 mg/dL (6-20) 05/03/24 09:44 Creatinine 1.0 mg/dL (0.7-1.2) 05/03/24 09:44 GFR Calculation 80.4 mL/min (90-130) L 05/03/24 09:44 Glucose 95 mg/dL (65-115) 05/03/24 09:44 Calculated Osmolality 281 mOsm/kg (285-295) L 05/03/24 09:44 Calcium 9.1 mg/dL (8.5-10.5) 05/03/24 09:44 Total Bilirubin 0.4 mg/dL (0.15-1.2) 05/03/24 09:44 AST 11 U/L (0-40) 05/03/24 09:44 ALT 7 U/L (0-41) 05/03/24 09:44 Alkaline Phosphatase 71 U/L (40-130) 05/03/24 09:44 C-Reactive Protein 3.0 mg/L (0.0-4.9) 05/03/24 09:44 Total Protein 6.8 g/dL (6.6-8.7) 05/03/24 09:44 Albumin 4.3 g/dL (3.5-5.2) 05/03/24 09:44 Globulin 2.5 g/dL (1.3-4.6) 05/03/24 09:44 Urine Color Yellow (Yellow) 05/03/24 10:37 Urine Appearance Clear (CLEAR) 05/03/24 10:37 Urine pH 7.0 (5-7) 05/03/24 10:37 Ur Specific Wilsey 1.023 (1.005-1.030) 05/03/24 10:37 Urine Protein Trace (Negative) A 05/03/24 10:37 Urine Glucose (UA) Negative (Normal) 05/03/24 10:37 Urine Ketones Negative (Negative) 05/03/24 10:37 Urine Blood Negative (Negative) 05/03/24 10:37 Urine Nitrate Negative (Negative) 05/03/24 10:37 Urine Bilirubin Negative (Negative) 05/03/24 10:37 Urine Urobilinogen 1.0 mg/dL (Negative) 05/03/24 10:37 Ur Leukocyte Esterase Negative (Negative) 05/03/24 10:37 Amorphous Sediment Not Reportable 05/03/24 10:37 Urine Opiates Screen Positive ng/mL (Negative) H 05/03/24 10:37 Ur Barbiturates Screen Negative ng/mL (Negative) 05/03/24 10:37 Ur Phencyclidine Scrn Negative ng/mL (Negative) 05/03/24 10:37 Ur Amphetamines Screen Negative ng/mL (Negative) 05/03/24 10:37 U Benzodiazepines Scrn Negative ng/mL (Negative) 05/03/24 10:37 Urine Cocaine Screen Negative ng/mL (Negative) 05/03/24 10:37 U Marijuana (THC) Screen Positive ng/mL (Negative) H 05/03/24 10:37 All radiology interpretation(s) finalized by discharge Discharge Plan Discharge Patient Disposition: Home Clinical Impression: Lumbar radiculopathy Condition: Stable Prescriptions: New tizanidine 4 mg tablet 4 mg PO Q6H PRN (Reason: muscle spasticity) Qty: 20 0RF Rx Instructions: do not exceed 3 doses per 24 hrs hydrocodone-acetaminophen 5-325 mg tablet 1 tab PO Q6H PRN (Reason: pain) Qty: 20 0RF prednisone 20 mg tablet 20 mg PO TID Qty: 15 0RF Rx Instructions: 1 p.o. 3 times daily x3 days, 1 p.o. twice daily x2 days, 1 p.o. daily x2 days diclofenac sodium 75 mg tablet,delayed release (DR/EC) 75 mg PO Q12H PRN (Reason: pain) Qty: 20 0RF No Action gabapentin 800 mg tablet 800 mg PO QPM Discharge Orders: Discharge ED (Routine); Ordered 05/03/24 Ordered By: Marlon Negrete Referrals: Estrellita Calvert DO [Primary Care Provider] - Discharge Diet: Usual diet Discharge Activity: Limit activity as instructed Patient Instructions: Lumbar Radiculopathy (ED), Lower Back Exercises (ED), Opioid Safety, Pain Management Activity Restrictions/Additional Instructions: Thank you for choosing [facility] for your healthcare needs today. It is very important that you follow up as instructed or that you return to the Emergency Department should you have concerns or if your condition changes or worsens in any way. You were seen in the emergency room with back pain radiating into your left leg. There are no signs of infection or cauda equina syndrome on your exam or the imaging done. There is sign of nerve impingement was a bulging disc on the left side consistent with your symptoms. Recommend that you follow-up with orthopedic spine surgery assistant case manager will make arrangements for you to see them. You were given steroids pain medications muscle relaxers in the emergency room and discharged home with similar oral medications to use as needed. Start the prednisone taper tomorrow. Print Language: Ethiopian Coding Level of Care Code ED Shear Operator for Jose Antonio Schulz
--- NOTE | 2024-05-03 09:35 | CTR_ITS ---
PROCEDURE INFORMATION: Exam: CT Lumbar Spine Without Contrast Exam date and time: 05/03/2024 9:57 AM Age: 48 years old Clinical indication: Low back pain; Additional info: Back pain left leg radiculopathy TECHNIQUE: Imaging protocol: Computed tomography of the lumbar spine without contrast. Radiation optimization: All CT scans at this facility use at least one of these dose optimization techniques: automated exposure control; mA and/or kV adjustment per patient size (includes targeted exams where dose is matched to clinical indication); or iterative reconstruction. COMPARISON: CT lumbar spine dated 04/30/2015 RADIATION DOSE METRICS: Total DLP (mGy-cm): 645.13 FINDINGS: Bones/joints: The lumbar vertebral body heights are maintained. The lumbar vertebral bodies are normally aligned. Moderate disc space narrowing at L5-S1 with vacuum disc phenomenon. L1-L2: No significant disc bulge or herniation. No severe spinal canal stenosis. No significant neuroforaminal narrowing. L2-L3: Broad concentric disc bulge and bilateral facet arthropathy contributing to mild central canal stenosis. Mild bilateral neuroforaminal narrowing. L3-L4: Broad concentric disc bulge and bilateral facet arthropathy contributing to [id number] central canal stenosis. Moderate bilateral neuroforaminal narrowing. L4-L5: Broad concentric disc bulge and bilateral facet arthropathy contributing to mild central canal stenosis. Mild bilateral neuroforaminal narrowing. L5-S1: Broad concentric disc bulge with a left lateral disc protrusion containing air measuring up to 1 cm in transverse dimension by 0.7 cm in AP dimension and 1 cm in craniocaudad extent effacing the left lateral recess and contributing to mild central canal stenosis. There is moderate left and mild right neuroforaminal narrowing. Soft tissues: Nonspecific left adrenal nodule measuring up to 1.6 cm demonstrates low Hounsfield units and may represent an adrenal adenoma. Other etiologies can not be entirely excluded as this was not clearly present on prior CT dated 04/30/2015. CT/CT lumbar spine wo con* [id number] IMPRESSION: 1. Multilevel degenerative changes of the lumbar spine as outlined above. If symptoms persist, consider further evaluation with MRI, if there are no contraindications to obtaining a MRI scan. 2. Nonspecific left adrenal nodule which may represent an adrenal adenoma. This however is not identified on prior CT scan dated 04/30/2015. Other etiologies cannot be entirely excluded. Recommend clinical correlation and follow-up imaging as clinically warranted. COMMENTS: Consistent with the [employer]'s Incidental Findings Committee white paper (J Am Beena Radiol 2017): For any incidental adrenal lesion greater than or equal to 1 cm but less than or equal to 4 cm classified in this report as benign, likely benign, or containing fat (including classification as an adenoma or myelolipoma), no follow-up imaging is recommended per consensus recommendations based on imaging criteria. Further lab evaluation could be pursued if warranted based on clinical findings.
[2024-05-03 09:50] VITALS: RESP 18; O2SAT 99
[2024-05-03 09:50] LABS: Basophils # 0.1 10^3/uL (0.0-0.1); Basophils % 0.6 %; Eosinophils # 0.2 10^3/uL (0.0-0.8); Eosinophils % 2.8 %; Hematocrit 48.9 % (37-53); Lymphocytes # 1.8 10^3/uL (0.8-4.8); Mean Corpuscular HGB Conc 33.9 g/dL (30-55); Mean Corpuscular Hemoglobin 31.6 pg (27-33); Mean Corpuscular Volume 93.1 fl (82-101); Mean Platelet Volume 9.3 fL (7.4-10.4); Monocytes # 0.8 10^3/uL (0.2-0.9); Monocytes % 10.5 %; Neutrophils # 4.98 10^3/uL (1.8-7.7); Neutrophils % 62.7 %; Nucleated Red Blood Cells % 0 %; Platelet Count 272 10^3/cmm (157-399); Red Blood Count 5.25 10^6/uL (3.85-5.65); White Blood Count 7.93 10^3/uL (3.29-11.43)
[2024-05-03] MEDS: dexamethasone 10 mg/mL INJ IM (09:50)
[2024-05-03] MEDS: ketorolac 30 mg/mL INJ IVP (09:50)
[2024-05-03] MEDS: morphine 4 mg/mL SDV 1 mL IVP ×2 (09:50→11:28)
[2024-05-03] MEDS: orphenadrine 30 mg/mL Inj 2 mL 60 MG IM (09:51)
[2024-05-03 10:08] LABS: Alanine Aminotransferase 7 U/L (0-41); Albumin Level 4.3 g/dL (3.5-5.2); Alkaline Phosphatase 71 U/L (40-130); Anion Gap 12.1 (5-19); Aspartate Amino Transferase 11 U/L (0-40); Blood Urea Nitrogen 15 mg/dL (6-20); Calcium 9.1 mg/dL (8.5-10.5); Carbon Dioxide 25 mmol/L (22-29); Chloride 102 mmol/L (98-107); Creatinine Clr Calc Pharmacy 108.7794; Globulin 2.5 g/dL (1.3-4.6); Glomerular Filtration Rate 80.4 mL/min (90-130); Glucose 95 mg/dL (65-115); Osmolality Calculated 281 mOsm/kg (285-295); Potassium 4.1 mmol/L (3.5-5.1); Sodium 135 mmol/L (136-145); Total Bilirubin 0.4 mg/dL (0.15-1.2); Total Protein 6.8 g/dL (6.6-8.7)
[2024-05-03 10:22] VITALS: BP 165/104; PULSE 45; O2SAT 98
[2024-05-03 10:44] LABS: Add Urine Microscopic? NO
[2024-05-03 10:51] LABS: Bilirubin Urine Negative (Negative); Blood Urine Negative (Negative); Glucose Urine UA Negative (Normal); Ketones Urine Negative (Negative); Leukocyte Esterase Urine Negative (Negative); Nitrate Urine Negative (Negative); Protein Urine Trace (Negative); Specific Gravity, Urine 1.023 (1.005-1.030); Urine Appearance Clear (CLEAR); Urine Color Yellow (Yellow)
[2024-05-03 10:55] LABS: Charge for UA Resulting for Rev
[2024-05-03 10:57] LABS: Amphetamines Screen Urine Negative (Negative); Barbiturates Screen Urine Negative (Negative); Benzodiazepines Screen Urine Negative (Negative); Cocaine Screen Urine Negative (Negative); Opiate Screen Urine Positive (Negative); PCP Screen Urine Negative (Negative); THC Screen Urine Positive (Negative)
[2024-05-03 11:28] VITALS: RESP 16
[2024-05-03 11:45] VITALS: BP 157/92; PULSE 71; O2SAT 97
== END 2024-05-03 11:48 | disposition home or self-care (01) ==
PROVIDERS: Emergency Provider Family Medicine; PCP Family Medicine
DX: M54.16 Radiculopathy, lumbar region (principal); F17.210 Nicotine dependence, cigarettes, uncomplicated; I10 Essential (primary) hypertension
CPT/HCPCS: 51798; 72131; 80053; 80306; 81003; 85025; 86140; 96374; 96375; 96376; 99285; J1100; J1885; J2270; J2360

== ENCOUNTER → 2024-05-20 15:08 | Outpatient (BNVA) | payer MEDICAID, SELFPAY | PROVIDERS: PCP Family Medicine; Visit Provider Orthopaedic Surgery | DX: M54.9 Dorsalgia, unspecified (principal) | CPT/HCPCS: 72110 ==

== ENCOUNTER 2024-05-29 13:33 | Outpatient (CLI) | payer MEDICAID, SELFPAY ==
--- NOTE | 2024-05-29 13:36 | CTR_ITS ---
PROCEDURE INFORMATION: Exam: CT Abdomen And Pelvis Without And With Contrast Exam date and time: 05/29/2024 1:47 PM Age: 48 years old Clinical indication: Condition or disease; Other: Adrenal adenoma TECHNIQUE: Imaging protocol: Computed tomography of the abdomen and pelvis without and with contrast. Axial, coronal and sagittal reformatted images were created and reviewed. Radiation optimization: All CT scans at this facility use at least one of these dose optimization techniques: automated exposure control; mA and/or kV adjustment per patient size (includes targeted exams where dose is matched to clinical indication); or iterative reconstruction. Contrast material: OMNI 350; Contrast volume: 100 ml; Contrast route: INTRAVENOUS (IV); COMPARISON: CT abdomen pelvis w con* [id number] 04/30/2015 5:09 PM RADIATION DOSE METRICS: Total DLP (mGy-cm): 1176.21 FINDINGS: Liver: Mild hepatic steatosis. 1.4 cm hemangioma in the caudate lobe. Gallbladder and biliary ducts: No radiodense gallstones. No biliary ductal dilatation. Pancreas: Unremarkable. Spleen: Unremarkable. Adrenal glands: 1.8 cm left adrenal adenoma. Kidneys and ureters: 4 mm low-density right renal lesion, too small to characterize. No radiodense calculi. No hydronephrosis. Stomach and bowel: No bowel wall thickening. No obstruction. No pneumatosis. Appendix: Normal. Intraperitoneal space: No free fluid. No organized fluid collection. No free air. Vasculature: Minimal atherosclerotic disease. No aneurysm or dissection. Lymph nodes: No pathologically enlarged lymph nodes. Urinary bladder: Mild circumferential urinary bladder wall thickening, likely secondary to underdistention. Reproductive: Unremarkable. Bones/joints: No acute osseous abnormality. Osteopenia. Mild degenerative changes. Soft tissues: Small, fat containing umbilical hernia. CT/CT abdomen pelvis wo/w [id number] IMPRESSION: 1. 1.8 cm left adrenal adenoma. 2. Additional findings, as above. COMMENTS: 1. Consistent with the [employer]'s Incidental Findings Committee white paper (J Am Beena Radiol 2017): For any incidental adrenal lesion greater than or equal to 1 cm but less than or equal to 4 cm classified in this report as benign, likely benign, or containing fat (including classification as an adenoma or myelolipoma), no follow-up imaging is recommended per consensus recommendations based on imaging criteria. Further lab evaluation could be pursued if warranted based on clinical findings. 2. Consistent with the [employer]'s Incidental Findings Committee white paper (J Am Beena Radiol 2018): Any incidental renal lesion less than 1 cm or classified as too small to characterize, or any incidental cystic renal lesion characterized as simple-appearing, is likely benign. No follow-up imaging is recommended for these lesions per consensus recommendations based on imaging criteria.
[2024-05-29] MEDS: iohexol 350 mg/mL 500 mL Btl (per mL) IV (13:50)
== END 2024-05-29 13:34 | disposition home or self-care (01) ==
PROVIDERS: PCP Family Medicine; Visit Provider Family Medicine
DX: D35.00 Benign neoplasm of unspecified adrenal gland (principal); K76.0 Fatty (change of) liver, not elsewhere classified; D18.09 Hemangioma of other sites; N28.9 Disorder of kidney and ureter, unspecified; N32.89 Other specified disorders of bladder; M85.80 Other specified disorders of bone density and structure, unspecified site; M47.9 Spondylosis, unspecified; K42.9 Umbilical hernia without obstruction or gangrene
CPT/HCPCS: 74178

== ENCOUNTER 2024-06-03 09:49 | Outpatient (CLI) | payer MEDICAID, SELFPAY ==
--- NOTE | 2024-06-03 | ECG_ITS ---
[facility] Date: 2024-06-03 Pat Name: Lewis Lord Department: Room: Gender: Male Phone Manager: : 1975 Requested By: Ramirez Storm Order Number: [id number] Daniel MD: Leonardo Erickson M.D. Interpretive Statements EXERCISE STRESS TEST EXERCISE DATA: The patient was exercised by Carlos protocol. Baseline heart rate was 64 beats per minute. Baseline blood pressure was 131/84 millimeters of mercury. Maximal predicted heart rate was 174 beats per minute. Maximum heart rate achieved was 139 which was 79% of the maximum predicted heart rate. Maximum blood pressure was 163/99 millimeters of mercury. Total exercise time was 8 minutes and 40 seconds. Maximum METs achieved was 10.2. The reason for ending the test was maximal effort achieved, leg fatigue and inability to reach target heart rate. The patient complained of shortness of breath during the stress test, which then resolved at the end of the test. ELECTROCARDIOGRAM: BASELINE: Showed sinus rhythm, normal axis, interventricular conduction delay, no significant ST-T changes at the baseline noted. [] EXERCISE: At the peak exercise level, [] No significant ST-T changes suggestive of ischemia noted. [] RECOVERY: During the recovery period, heart rate dropped appropriately. No significant ST-T changes in the recovery suggestive of ischemia noted. [] CONCLUSION: 1. Exercise capacity is fair. 2. Heart rate response was suboptimal 3. Blood pressure response was appropriate. 4. Symptoms not suggestive of ischemia. 5. Stress test is inconclusive as patient could not reach target heart rate. At maximal achieved heart rate, no significant ischemic changes seen. Electronically Signed On 06-21-2024 22:05:54 CDT by Leonardo Erickson M.D. [email or web address]
[2024-06-03 09:51] VITALS: BMI 26.1
[2024-06-03 10:37] VITALS: BP 133/90; PULSE 83
--- NOTE | 2024-06-03 10:57 | PC.NURSE ---
Treadmill stress test Pt did not meet Target HR with maximal effort. Pt acheived 79% of maximal HR. Dr. Erickson notified and message left with primary provider.
== END 2024-06-03 09:50 | disposition home or self-care (01) ==
PROVIDERS: PCP Family Medicine; Visit Provider Family Medicine
DX: R07.89 Other chest pain (principal)
CPT/HCPCS: 93017

== ENCOUNTER 2024-06-18 13:40 | Outpatient (RCR) | payer MEDICAID, SELFPAY | END 2024-07-02 23:59 | disposition home or self-care (01) | LOC: SPT 13:40 | PROVIDERS: Visit Provider Orthopaedic Surgery | DX: M54.50 Low back pain, unspecified (principal); G89.29 Other chronic pain | CPT/HCPCS: 97110; 97161 ==

== ENCOUNTER 2024-07-03 05:00 | Outpatient (RCR) | payer MEDICAID, SELFPAY | END 2024-08-02 23:59 | disposition home or self-care (01) | LOC: SPT 05:00 | PROVIDERS: PCP Family Medicine; Visit Provider Orthopaedic Surgery | DX: M54.50 Low back pain, unspecified (principal); G89.29 Other chronic pain | CPT/HCPCS: 97110; 97164 ==

== ENCOUNTER 2024-07-04 13:26 | Outpatient (CLI) | payer MEDICAID, SELFPAY ==
--- NOTE | 2024-07-04 13:45 | MR_ITS ---
WS: [id number] EXAMINATION: MR shoulder LT wo/w con [id number] ORDER DATE: 07/04/2024 1:55 PM COMPARISON: 2018 HISTORY: M12.812 - Other specific arthropathies, not elsewhere cla... TECHNIQUE: Axial T2 STAR, coronal proton density fat sat, sagittal T2 fat sat, sagittal proton density fat sat, axial proton density fat sat, coronal T2 fat sat, and coronal T1 performed. After contrast, axial T1 fat sat, coronal T1 fat sat, and sagittal T1 fat sat were performed. FINDINGS: Moderate degenerative arthritis AC joint. Mild downsloping acromion. Subacromial spurring. Mild impingement distal supraspinatus. Tendinopathy in the distal supraspinatus. Tendinopathy infraspinatus. Tiny supraspinatus insertional tear. Partial-thickness undersurface rim rent type infraspinatus tear approximately 1.1 cm from the insertion. No tendon retraction. Normal teres minor. Normal subscapularis. Biceps tendon is present within the bicipital groove. Normal intra-articular biceps tendon. No abnormal gadolinium enhancement. No other acute findings. MR/MR shoulder LT wo/w con [id number] IMPRESSION: 1. Moderate degenerative arthritis AC joint. Mild downsloping acromion with garcía bacromial spurring and slight impingement distal supraspinatus. 2. Tendinopathy supraspinatus and infraspinatus. 3. Tiny insertional supraspinatus tear. 4. Partial thickness rim rent type infraspinatus tear approximately 1 cm from the insertion. 5. Small amount of subacromial subdeltoid fluid. 6. Normal biceps tendon in the bicipital groove. Intra-articular biceps tendon appears intact. 7. No abnormal gadolinium enhancement. 8.
[2024-07-04] MEDS: gadobenate dimeglumine 20 mL vial IV (14:32)
== END 2024-07-04 13:27 | disposition home or self-care (01) ==
PROVIDERS: PCP Family Medicine; Visit Provider Specialist
DX: M19.012 Primary osteoarthritis, left shoulder (principal); M75.42 Impingement syndrome of left shoulder; M67.814 Other specified disorders of tendon, left shoulder; S46.812A Strain of other muscles, fascia and tendons at shoulder and upper arm level, left arm, initial encounter; X58.XXXA Exposure to other specified factors, initial encounter
CPT/HCPCS: 73223

== ENCOUNTER 2024-07-17 09:57 | Outpatient (CLI) | payer OTHER, SELFPAY ==
--- NOTE | 2024-07-17 10:07 | XR_ITS ---
WS: [id number] Exam: XR lumbar spine 2-3V* [id number] Date/Time of Exam: 07/17/2024 10:17 AM Reason For Exam: BACK NECK COMPLAINTS Comparison 05/20/2024. Degenerative vacuum disc at L5-S1. The remaining discs are normal in appearance. Mild spondylosis. Posterior elements are intact. XR/XR lumbar spine 2-3V* [id number] IMPRESSION: 1. Degenerative vacuum disc at L5-S1. Mild spondylosis.
--- NOTE | 2024-07-17 10:07 | XR_ITS ---
WS: [email or web address] Exam: XR cervical spine 3V* [id number] Date/Time of Exam: 07/17/2024 10:17 AM Reason For Exam: BACK NECK COMPLAINTS Comparison 11/13/2022. No fracture or malalignment. There is straightening. Spondylosis and mild degenerative disc change from C4-C7. Mild facet DJD at all levels. Normal paraspinal soft tissues. The dens is intact. XR/XR cervical spine 3V* [id number] IMPRESSION: 1. Straightening. Mild degenerative changes.
== END 2024-07-17 09:58 | disposition home or self-care (01) ==
LOC: RAD 10:02
PROVIDERS: PCP Family Medicine; Visit Provider Dermatology
DX: Z02.71 Encounter for disability determination (principal); M47.892 Other spondylosis, cervical region; R93.7 Abnormal findings on diagnostic imaging of other parts of musculoskeletal system; M51.379 Other intervertebral disc degeneration, lumbosacral region without mention of lumbar back pain or lower extremity pain; M47.817 Spondylosis without myelopathy or radiculopathy, lumbosacral region
CPT/HCPCS: 72040; 72100

== ENCOUNTER → 2024-08-18 11:28 | Outpatient (BNVA) | payer MEDICAID, SELFPAY | PROVIDERS: PCP Family Medicine; Visit Provider Internal Medicine Cardiovascular Disease | DX: R07.9 Chest pain, unspecified (principal) | CPT/HCPCS: 93005 ==

== ENCOUNTER 2024-08-31 10:04 | Emergency (ER) | payer MEDICAID, SELFPAY ==
--- OUTSIDE RECORDS SUMMARY | 2021-10-29 08:30 | XMS_ITS | Continuity of Care Document ---
Author Organization [facility] Address [address] [id number] [address] Phone Care Team Providers Care Net Repairer Name Role Phone Jose ZULETA, Krunal Unavailable Unavailable Chriss COLES, Lana Unavailable Unavailable Allergies, Adverse Reactions, Alerts Substance Reaction Status Criticality codeine Active No Information Medications Medication Instructions Dosage Effective Dates (start - stop) Status Comments lisinopril 10 mg tablet take 1 tablet by oral route every day 10 MG - Active amoxicillin 500 mg tablet take 4 Tablet by Oral route once Take all 4, 500 mg tabs equal to 2000mg's 1 hour prior to dental treatment. 2000 MG - Active Problems Condition Type Effective Dates (start - stop) Clini pawan Status Comments No Known Problems Procedures Procedure Date Limited Oral Evaluation Problem Focused Intraoral Periapical First Film Intraoral Periapical Each Additional Film Extraction, Erupted Tooth Or Exposed Kamini t (Elevati Extraction, Erupted Tooth Or Exposed Kamiin t (Elevati Limited Oral Evaluation Problem Focused Intraoral Periapical First Film Extraction, Erupted Tooth Or Exposed Kamini t (Elevati EDR Approval Note Intraoral Periapical First Film Intraoral Periapical Each Additional Film Extraction, Erupted Tooth Or Exposed Kamini t (Elevati Extraction, Erupted Tooth Or Exposed Kamini t (Elevati Limited Oral Evaluation Problem Focused EDR Approval Note Advance Directives Directive Yes / No Effective Date File Name No Information Encounters Encounter Description Practice Location Reason(s) For Visit Diagnoses Date Provider Providers Copied on Encounter [facility], [id number], [id number], [place] tel:[phone] [facility] No Information Jose Hector. [address], [place], [address], [place]. tel:[phone] Referring Provider: Krunal Garcia, [address] [place], [address]. tel:[phone] lting Provider: Lana Banerjee, [address] [place], [address]. tel:[phone] [facility], [id number], [id number], [place] tel:[phone] [facility] Encounter for dental exam and cleaning w/o abnormal findings Riana Chavez. [address], [place], [id number], [place]. tel:[phone] Referring Provider: Scott Cleveland, [address] [place], [address]. tel:[phone] [facility], [id number], [id number], [place] tel:[phone] [facility] Encounter for dental exam and cleaning w/o abnormal findings Riana Chavez. [address], [place], [id number], [place]. tel:[phone] Referring Provider: Scott Cleveland, [address] [place], [address]. tel:[phone] Family History Family Member Type Diagnosis Age At Onset Father Problem (finding) Cardiovascular disease Payers Payer name Insurance type Covered constitution party ID Authoriza tion(suzanna) Cristofer Gambino CI [id number] Social History Type Description Quantity Date Captured Comments Alcohol Use Details Caffeine Use Details Unknown Tobacco Use Status Smoking Status No Information Sex Male Gender Identity Male Chief Complaint And Reason For Visit No Information Reason For Referral Reason For Referral No Information Plan Of Treatment Date Type Action Status Goal Tobacco cessation counseling completed Goal Tobacco cessation counseling completed History Of Present Illness Encounter Date Complaint History Of Prese nt Illness No Information Functional Status Date Functional Assessmen t No Information Instructions Date Instruction Additional Infor mation Lifestyle education Related to D ental Examination Lifestyle education Related to D ental Examination Lifestyle education Related to D ental Examination Assessments Type Assessment Date No Information Patient Care Teams Name Effective Dates (start - stop) Status Members No Information
[2024-08-31 10:05] VITALS: BMI 28.8
--- NOTE | 2024-08-31 10:06 | CTR_ITS ---
PROCEDURE INFORMATION: Exam: CT Head Without Contrast Exam date and time: 08/31/2024 10:03 AM Age: 48 years old Clinical indication: Stroke-like symptoms; Altered mental status/memory loss and headache and speech disturbance; Additional info: Symptoms of acute stroke TECHNIQUE: Imaging protocol: Computed tomography of the head without contrast. Radiation optimization: All CT scans at this facility use at least one of these dose optimization techniques: automated exposure control; mA and/or kV adjustment per patient size (includes targeted exams where dose is matched to clinical indication); or iterative reconstruction. Other technique: STROKE PROTOCOL was implemented. COMPARISON: CT head wo con* [id number] 12/25/2021 11:39 AM RADIATION DOSE METRICS: Total DLP (mGy-cm): 1037.08 FINDINGS: Brain: No CT evidence of acute infarct, hemorrhage, mass or mass effect. Stable white matter hypoattenuation in both frontal lobes, similar in appearance to the prior study in December 2021. Cerebral ventricles: No ventriculomegaly. Paranasal sinuses: Visualized sinuses are unremarkable. No fluid levels. Mastoid air cells: Visualized mastoid air cells are well aerated. Bones: Unremarkable. No acute fracture. Soft tissues: Unremarkable. CT/CT head thrombolytic [id number] IMPRESSION: 1. No CT evidence of acute brain injury. 2. Stable bihemispheric white matter hypoattenuation, primarily in the white matter of both frontal lobes. The appearance is similar to the December [address] of the head. Consider nonemergent MRI evaluation. ASSESSMENT: ASPECTS ([place] Stroke Program Early CT Score) is 10.
--- OUTSIDE RECORDS SUMMARY | 2024-08-31 10:09 | XMS_ITS | Data Portability ---
Author Organization [facility] Address [address] [address] Assessment No assessment recorded. Plan of Treatment Reminders Order Date Submit Date Provider Last Modified By Organization Details Last Modified Time Details Appointments RECHECK 15 2024 02:00P M Ramirez Gomez MD Not available Not available Not available Lab CMP, serum or plasma 2024 025 [employer] [facility], [address] [place] [address], [address] [place], [address], 05/13/2024 10:05:18 urinalysi s, complete 2024 025 [facility], [address] [facility], [facility] [address], [address], 05/12/2024 12:23:35 lipid panel, blood 2024 025 [email or web address] [facility], [address] [place] [address] 248, [address] , [place], [address], 05/19/2024 09:12:59 CBC 2024 025 [facility], [address] [facility], [facility] [address], [address], 05/12/2024 12:12:25 Referral None recorded. Procedures nerve conductio n study/EMG , upper extremity (PROC) 2023 024 [email or web address] [facility], [address] [place], [address], 07/20/2023 11:08:05 Surgeries None recorded. Imaging exercise stress test 2024 025 [facility] (Scheduling Orders), [address] [facility], [place], [address], 06/21/2024 23:09:45 Medication Orders hydrocodo ne 5 mg-acetam inophen 325 mg tablet 2024 025 [facility], [address] [address] [place] [address], [address], 08/11/2024 15:44:24 losartan 100 mg tablet 2024 025 [facility] 15, [address] [address], [address], 08/11/2024 15:44:21 metoprolo l succinate ER 25 mg tablet,ex tended release 24 hr 2024 025 [facility] 15, [address] [address], [address], 08/11/2024 15:44:23 tizanidin e 4 mg tablet 2024 025 [facility] 15, [address] [address], [address], 08/11/2024 15:44:20 Ventolin HFA 90 mcg/actua tion aerosol inhaler 2024 025 [facility] 15, [address] [address], [address], 05/30/2024 17:09:19 metoprolo l succinate ER 25 mg tablet,ex tended release 24 hr 2024 [facility] 15, [address], [place], [address], 05/12/2024 11:17:30 losartan 100 mg tablet 2024 025 [facility] 15, [address] [address], [address], 05/12/2024 11:17:30 amoxicill in 875 mg-potass ium clavulana te 125 mg tablet 2023 025 [facility] 15, [address] [facility], [place], [address], 05/12/2024 10:26:29 prednison e 20 mg tablet 2023 025 [facility] 15, [address] [address] [place] [address], [address], 05/12/2024 10:26:34 Mucinex D 60 mg-600 mg tablet,ex tended release 2023 025 [facility] 15, [address], [place], [address], 05/12/2024 10:30:07 losartan 100 mg tablet 2023 024 [facility] 15, [address] [address] [place] [address], [address], 06/13/2023 16:31:27 metoprolo l succinate ER 25 mg tablet,ex tended release 24 hr 2023 024 [facility] 15, [address] [facility] [address] [place] [address], [address], 06/13/2023 16:31:29 Patient TargetsNo targets recorded. Patient Instructions Encounter Date Encounter Id Patient Instructions Last Modified By Organization Details Last Modified Time 08/11/2024 [id number] Cleared for surgery as long a cardiology feel that he is low risk. Not available 08/11/2024 15:40:44 Reason for Referral None Reported. Results Created Date Observation Date Name Description Value Unit Range Abnormal Flag Note LastModifiedBy Organization Detail LastModifiedTime 05/13/1905/12/2024 CBC WBC 12.7 x10 4.5-10 .5 high Not Available [facility] [address] [facility] [address], [place], [address], 05/12/2024 12:12:25 05/13/1905/12/2024 CBC RBC 4.78 x10 4.30-5 .90 Not Available [facility] [address] [facility], [place], [address], 05/12/2024 12:12:25 05/13/1905/12/2024 CBC HGB 17.2 g/dL 13.5-1 8.0 Not Available [facility] [address] [facility], [place], [address], 05/12/2024 12:12:25 05/13/19 25 05/12/2024 CBC HCT 45.0 % 35.0-6 0.0 Not Available [facility] [address] [place] [address] [facility] 1, [place], [address], 05/12/2024 12:12:25 05/13/1905/12/2024 CBC MCV 94.1 fL 80.0-9 9.9 Not Available [facility] [address] [place] [address]enee [facility] 1, [place], [address], 05/12/2024 12:12:25 05/13/1905/12/2024 CBC MCH 35.9 pg 27.0-3 2.0 high Not Available [facility] [address] [facility] 1, [place], [address], 05/12/2024 12:12:25 05/13/19 25 05/12/2024 CBC MCHC 38.1 g/dL 32.0-3 6.0 high Not Available [facility] [address] [facility], [place], [address], 05/12/2024 12:12:25 05/13/19 25 05/12/2024 CBC RDW 13.9 % 11.5-1 4.5 Not Available [facility] [address] [facility] 1, [place], [address], 05/12/2024 12:12:25 05/13/19 25 05/12/2024 CBC plt 273.9 x10 150.0- 451.0 Not Available [facility] [address] [facility] 1, [place], [address], 05/12/2024 12:12:25 05/13/19 25 05/12/2024 CBC lymphocytes % 23.0 % 20.0-5 0.0 Not Available [facility] [address] [facility] 1, [place], [address], 05/12/2024 12:12:25 05/13/19 25 05/12/2024 CBC granulcytes % 65.1 % 30.0-7 0.0 Not Available [facility] [address] [facility] 1, [place], [address], 05/12/2024 12:12:25 05/13/19 25 05/12/2024 CBC monocytes % 9.3 % 2.0-16 .0 Not Available [facility] [address] [facility] 1, [place], [address], 05/12/2024 12:12:25 05/13/19 25 05/12/2024 CBC granulcytes# 8.3 x10 Not Marjorie ilable [facility] [address], [place], [address], 05/12/2024 12:12:25 05/13/19 25 05/12/2024 CBC lymphocytes # 2.9 x10 Not Available [facility] [address], [place], [address], 05/12/2024 12:12:25 05/13/19 25 05/12/2024 CBC monocytes # 1.2 x10 Not Avai lable [facility] [address], [place], [address], 05/12/2024 12:12:25 05/13/19 25 05/12/2024 URINA LYSIS WITH MICRO color YELLOW Not Available [facility] [address], [place], [address], 05/12/2024 12:23:35 05/13/19 25 05/12/2024 URINA LYSIS WITH MICRO clarity CLEAR Not Available [facility] [address], [place], [address], 05/12/2024 12:23:35 05/13/19 25 05/12/2024 URINA LYSIS WITH MICRO glu NEGATI VE Not Available [facility] [address], [place], [address], 05/12/2024 12:23:35 05/13/19 25 05/12/2024 URINA LYSIS WITH MICRO bili NEGATI VE Not Available [facility] [address], [place], [address], 05/12/2024 12:23:35 05/13/19 25 05/12/2024 URINA LYSIS WITH MICRO ket NEGATI VE Not Available [facility] [address] [facility] [address], [place], [address], 05/12/2024 12:23:35 05/13/19 25 05/12/2024 URINA LYSIS WITH MICRO S.g 1.020 1.005- 1.025 Not Available [facility] [address], [place], [address], 05/12/2024 12:23:35 05/13/19 25 05/12/2024 URINA LYSIS WITH MICRO pH 7.0 5.0-7. 0 Not Available [facility] [address], [place], [address], 05/12/2024 12:23:35 05/13/19 25 05/12/2024 URINA LYSIS WITH MICRO pro NEGATI VE Not Available [facility] [address], [place], [address], 05/12/2024 12:23:35 05/13/19 25 05/12/2024 URINA LYSIS WITH MICRO uro 1.0 E.U./D L Not Available [facility] [address], [place], [address], 05/12/2024 12:23:35 05/13/19 25 05/12/2024 URINA LYSIS WITH MICRO nit NEGATI VE Not Available [facility] [address], [place], [address], 05/12/2024 12:23:35 05/13/19 25 05/12/2024 URINA LYSIS WITH MICRO blo NEGATI VE Not Available [facility] [address], [place], [address], 05/12/2024 12:23:35 05/13/19 25 05/12/2024 URINA LYSIS WITH MICRO lizeth NEGATI VE Not Available [facility] [address] [facility] 1, [place], [address], 05/12/2024 12:23:35 05/13/19 25 05/12/2024 URINA LYSIS WITH MICRO WBC 1-2 Not Available [facility] [address] [facility] 1, [place], [address], 05/12/2024 12:23:35 05/13/19 25 05/12/2024 URINA LYSIS WITH MICRO RBC 0 Not Available [facility] [address] [facility] 1, [place], [address], 05/12/2024 12:23:35 05/13/19 25 05/12/2024 URINA LYSIS WITH MICRO epi cells 0 Not Available [facility] [address] [facility] 1, [place], [address], 05/12/2024 12:23:35 05/13/19 25 05/12/2024 URINA LYSIS WITH MICRO bacteria TRACE OF AMORPH OUS Not Available [facility] [address] [facility] 1, [place], [address], 05/12/2024 12:23:35 05/13/19 25 05/12/2024 URINA LYSIS WITH MICRO other NEGATI VE Not Available [facility] [address] [facility] 1, [place], [address], 05/12/2024 12:23:35 05/13/19 25 05/13/2024 LIPID PANEL , STAND AMRIT cholesterol, total 170 mg/dL <200 normal Not Available [facility] [address] [place], [address], 05/13/2024 10:05:17 05/13/19 25 05/13/2024 LIPID PANEL , STAND AMRIT HDL cholesterol 41 mg/dL > or = 40 normal Not Available [facility] [address] [place], [address], 05/13/2024 10:05:17 05/13/19 25 05/13/2024 LIPID PANEL , STAND AMRIT triglyceride s 183 mg/dL <150 high Not Available [address], [address], 05/13/2024 10:05:17 05/13/19 25 05/13/2024 LIPID PANEL , STAND AMRIT LDL-choleste rol 101 mg/dL _(pawan c) high Refer ence range : <100 Charles able range <100 mg/dL for prima ry preve ntion ; <70 mg/dL for patie nts with CHD or diabe tic patie nts with > or = 2 CHD risk facto rs. LDL-C is now calcu lated using the Monisha n-Hop kins calcu latvidal n, which is a valid ated novel metho d provi ding humear r accur acy than the Fried stephanie equat ion in the estim ation of LDL-C . Monisha garcia SS et al. JESSICA. 2013; 310(1 9): 2061- 2068 (http ://ed ucati on.Qu estDi Therasis. com/f aq/FA Q164) Not Available [address], [address], 05/13/2024 10:05:17 05/13/19 25 05/13/2024 LIPID PANEL , STAND AMRIT chol/HDLC ratio 4.1 (calc ) <5.0 normal Not Available [address], [address], 05/13/2024 10:05:17 05/13/19 25 05/13/2024 LIPID PANEL , STAND AMRIT non HDL cholesterol 129 mg/dL _(pawan c) <130 normal For patie nts with diabe ananda plus 1 major ASCVD risk facto r, treat ing to a non-H DL-C goal of <100 mg/dL (LDL- C of <70 mg/dL ) is consi dered a thera peuti c optio n. Not Available [facility] [address] [place] [address], [address], 05/13/2024 10:05:17 05/13/19 25 05/13/2024 COMPR EHENS MIGDALIA METAB OLIC PANEL glucose 93 mg/dL 65-99 normal Fasti ng refer ence inter sylvie Not Available [address], [address], 05/13/2024 10:05:18 05/13/19 25 05/13/2024 COMPR EHENS MIGDALIA METAB OLIC PANEL urea nitrogen (BUN) 17 mg/dL 7-25 normal Not Available [address], [address], 05/13/2024 10:05:18 05/13/19 25 05/13/2024 COMPR EHENS MIGDALIA METAB OLIC PANEL creatinine 1.04 mg/dL 0.60-1 .29 normal Not Available [address], [address], 05/13/2024 10:05:18 05/13/19 25 05/13/2024 COMPR EHENS MIGDALIA METAB OLIC PANEL eGFR 90 mL/mi n/1.7 3m2 > or = 60 normal Not Available [address], [place], [address], 05/13/2024 10:05:18 05/13/19 25 05/13/2024 COMPR EHENS MIGDALIA METAB OLIC PANEL BUN/creatini ne ratio SEE NOTE: (calc ) 6-22 Not Repor debbie: BUN and Creat inine are withi n refer ence range . Not Available [address], [address], 05/13/2024 10:05:18 05/13/19 25 05/13/2024 COMPR EHENS MIGDALIA METAB OLIC PANEL sodium 139 mmol/ L 135-14 6 normal Not Available [address], [address], 05/13/2024 10:05:18 05/13/19 25 05/13/2024 COMPR EHENS MIGDALIA METAB OLIC PANEL potassium 4.1 mmol/ L 3.5-5. 3 normal Not Available [address], [address], 05/13/2024 10:05:18 05/13/19 25 05/13/2024 COMPR EHENS MIGDALIA METAB OLIC PANEL chloride 100 mmol/ L 98-110 normal Not Available [address], [address], 05/13/2024 10:05:18 05/13/19 25 05/13/2024 COMPR EHENS MIGDALIA METAB OLIC PANEL carbon dioxide 31 mmol/ L 20-32 normal Not Available [address], [address], 05/13/2024 10:05:18 05/13/19 25 05/13/2024 COMPR EHENS MIGDALIA METAB OLIC PANEL calcium 9.1 mg/dL 8.6-10 .3 normal Not Available [address], [address], 05/13/2024 10:05:18 05/13/19 25 05/13/2024 COMPR EHENS MIGDALIA METAB OLIC PANEL protein, total 7.0 g/dL 6.1-8. 1 normal Not Available [address], [address], 05/13/2024 10:05:18 05/13/19 25 05/13/2024 COMPR EHENS MIGDALIA METAB OLIC PANEL albumin 4.2 g/dL 3.6-5. 1 normal Not Available [address], [address], 05/13/2024 10:05:18 05/13/19 25 05/13/2024 COMPR EHENS MIGDALIA METAB OLIC PANEL globulin 2.8 g/dL_ (calc ) 1.9-3. 7 normal Not Available [address], [address], 05/13/2024 10:05:18 05/13/19 25 05/13/2024 COMPR EHENS MIGDALIA METAB OLIC PANEL albumin/glob ulin ratio 1.5 (calc ) 1.0-2. 5 normal Not Available [address], [address], 05/13/2024 10:05:18 05/13/19 25 05/13/2024 COMPR EHENS MIGDALIA METAB OLIC PANEL bilirubin, total 0.4 mg/dL 0.2-1. 2 normal Not Available [address], [address], 05/13/2024 10:05:18 05/13/19 25 05/13/2024 COMPR EHENS MIGDALIA METAB OLIC PANEL alkaline phosphatase 64 U/L 36-130 normal Not Available [address], [address], 05/13/2024 10:05:18 05/13/19 25 05/13/2024 COMPR EHENS MIGDALIA METAB OLIC PANEL AST 11 U/L 10-40 normal Not Available [address], [address], 05/13/2024 10:05:18 05/13/19 25 05/13/2024 COMPR EHENS MIGDALIA METAB OLIC PANEL ALT 9 U/L 9-46 normal Not Available [address], [address], 05/13/2024 10:05:18 10/10/19 24 09/20/2023 nerve condu ction study /EMG, upper extre mity (PROC ) No observ ation record ed. [email or web address] [facility] [address] [place], [address], 2023 13:09:12 01/24/20 24 01/24/2024 nerve condu ction study /EMG, upper extre mity (PROC ) No observ ation record ed. [email or web address] [facility] [address], [place], [address], 01/25/2024 13:36:13 01/30/20 24 01/24/2024 nerve condu ction study /EMG, upper extre mity (PROC ) No observ ation record ed. [facility] [address], [place], [address], 01/30/2024 13:32:40 06/22/19 25 06/03/2024 exerc ise stres s test No observ ation record ed. [facility] [address] [place], [address], 06/23/2024 12:21:29 07/22/19 25 07/17/2024 XR, cervi pawan spine No observ ation record ed. [email or web address] [facility] [address] [facility] [address], [place], [address], 07/21/2024 13:45:33 Result Notes None recorded. Problems Name Problem SNOMED Code Status Onset Date Resolution Date Notes Provider Name and Address Organization Details Recorded Time Pain of multiple joints 66837650 Active 2022 NILS burt [facility], L.L[facility]CJerry 5 10:26:44 Acquired deformity of the thumb 326078022 Active 2022 NILS burt [facility], L.L.CJerry 5 10:26:44 Essential hypertens ion 19849669 Active 2022 NILS burt [facility], L.L.CJerry 5 10:26:44 Paresthes ia of upper limb 16428247 Active 2023 NILS RHOADES null, [facility] 5 10:26:45 Atypical chest pain 289765253 Active 2024 BEVERLY LOYA carmel, [facility], [facility] 5 16:29:05 Reactive airway disease 488563064414 Active 2024 BEVERLY LOYA carmel, [facility] 5 14:57:50 Orthostat ic hypotensi on 20711072 Completed 202408/11/2024 BEVERLY LOYA carmel, [facility] 5 14:58:09 Nontrauma tic partial rupture of left rotator cuff 637551826671 9103 Active 2024 Ramirez Gomez MD [address] [place] [address], [phone] [place] [address], L.L.C. 5 15:42:23 Problem Notes None recorded. Medical Equipment None Reported. Allergies Allergen ID Allergen Name Allergen Category Reaction Reaction Severity Criticality Documentation Date Start Date Code Code System Note Provider Name and Address Organization Details Recorded Time 53048 codeine sulfate medicatio n Not available Not available Not available 09/30/2022 92797 RxNorm Comme nt: Recor ded 09/29 1:16P M by Beverly Manrique RN, Offic e Visit ; Promo debbie; Trinity farias ce: *; Reaso n: Drug aller gy; ; Not Available [facility] 3 02:28:44 Medications Name Sig Start Date Stop Date Status Note LastModified by Organization Details LastModified Time promethaz ine-DM 6.25 mg-15 mg/5 mL oral syrup TAKE 5 ML BY MOUTH EVERY 6 HOURS NEEDED FOR COUGH 02/12 completed Not Available Not Available Not Available gabapenti n 600 mg tablet TAKE 1 TABLET BY MOUTH ONCE DAILY AT BEDTIME 12/18 completed Not Available Not Available Not Available doxycycli ne hyclate 100 mg capsule TAKE 1 CAPSULE BY MOUTH TWICE DAILY 02/12 completed Not Available Not Available Not Available tizanidin e 4 mg tablet TAKE 1 TABLET BY MOUTH EVERY 6 HOURS NEEDED active Not Available Not Available No t Available hydrocodo ne 5 mg-acetam inophen 325 mg tablet TAKE 1 TABLET BY MOUTH EVERY 6 HOURS active Not Available Not Available No t Available prednison e 20 mg tablet TAKE 1 TAB BY MOUTH 3 TIMES DAILY FOR 3 DAYS, THEN 1 TAB TWICE DAILY FOR 2 DAYS, THEN 1 TAB DAILY FOR 2 DAYS 05/12 completed Not Available Not Available Not Available amlodipin e 5 mg tablet TAKE 1 TABLET BY MOUTH ONCE DAILY active Not Available Not Available No t Available gabapenti n 800 mg tablet TAKE 1 TABLET BY MOUTH ONCE DAILY IN THE EVENING 05/12 completed Not Available Not Available Not Available nitroglyc bj 0.4 mg sublingua l tablet DISSOLVE ONE TABLET UNDER THE TONGUE EVERY 5 MINUTES NEEDED FOR CHEST PAIN. DO NOT EXCEED A TOTAL OF 3 DOSES IN 15 MINUTES active Not Available Not Available No t Available gabapenti n 300 mg capsule TAKE 1 CAPSULE BY MOUTH ONCE DAILY AT BEDTIME 12/18 completed Not Available Not Available Not Available diclofena c sodium 75 mg tablet,de layed release TAKE 1 TABLET BY MOUTH EVERY 12 HOURS NEEDED FOR PAIN active Not Available Not Available No t Available metoprolo l succinate ER 25 mg tablet,ex tended release 24 hr TAKE 1 TABLET BY MOUTH ONCE DAILY active Not Available Not Available No t Available Tegretol 200 mg tablet two times daily 02/12 completed 0; Recorded 09/30/19 16 1:14PM by Beverly Manrique RN, Office Visit; Not Available Not Available Not Available propranol ol 20 mg tablet TAKE 1 TABLET BY MOUTH TWICE DAILY 06/12 completed Not Available Not Available Not Available losartan 100 mg tablet TAKE 1 TABLET BY MOUTH ONCE DAILY active Not Available Not Available No t Available amoxicill in 875 mg-potass ium clavulana te 125 mg tablet TAKE 1 TABLET BY MOUTH EVERY 12 HOURS FOR 10 DAYS 05/12 completed Not Available Not Available Not Available Ventolin HFA 90 mcg/actua tion aerosol inhaler INHALE 2 PUFFS BY MOUTH EVERY 4 HOURS NEEDED active Not Available Not Available No t Available pregabali n 50 mg capsule TAKE 1 CAPSULE BY MOUTH TWICE DAILY FOR 30 DAYS active Not Available Not Available No t Available Mucinex D 60 mg-600 mg tablet,ex tended release Take 1 tablet twice a day by oral route as needed, for congesti on. 05/12 completed Not Available Not Available Not Available diazepam 02/12 completed 0; Recorded 09/30/19 16 1:14PM by Beverly Manrique RN, Office Visit; Not Available Not Available Not Available Narcan 4 mg/actuat ion nasal spray CALL 911. USE ONE FULL SPRAY IN ONE NOSTRIL ONE TIME. REPEAT EVERY 2-3 MINUTES NEEDED IF NO OR MINIMAL RESPONSE . active Not Available Not Available No t Available Vitals Date Recorded Body weight Oxygen saturation Oxygen saturation in Arterial blood by Pulse oximetry Heart rate Systolic blood pressure Diastolic blood pressure Provider Name and Address Organization Details Last Updated DateTime 5 50056.8 4 g 98 % 98 % 90 /min 170 mm[Hg] 110 mm[Hg] [facility] 5 10:36:58 Date Recorded Body weight Body mass index (BMI) Body height Heart rate Systolic blood pressure Diastolic blood pressure Provider Name and Address Organization Details Last Updated DateTime 5 59426.4 7 g 26.4 kg/m2 185.42 cm 68 /min 141 mm[Hg] 90 mm[Hg] [facility] 5 16:24:38 Date Recorded Body weight Oxygen saturation Oxygen saturation in Arterial blood by Pulse oximetry Heart rate Systolic blood pressure Diastolic blood pressure Provider Name and Address Organization Details Last Updated DateTime 4 84387.4 4 g 96 % 96 % 100 /min 162 mm[Hg] 110 mm[Hg] [facility] 4 15:53:28 Date Recorded Body height Body mass index (BMI) Body weight Heart rate Systolic blood pressure Diastolic blood pressure Provider Name and Address Organization Details Last Updated DateTime 5 185.42 cm 26.9 kg/m2 21559.8 4 g 60 /min 141 mm[Hg] 90 mm[Hg] [facility] 15:01:55 Date Recorded Body weight Provider Name an d Address Organization Details Last Updated DateTime 12/19/2023 69000.47 g BEVERLY LOYA [facility], Sree 12/19/2023 15:55:49 Social History Question Answer Notes LastModified by Organizat ion Details LastModified Time Tobacco Smoking Status Former Smoker BEVERLY burt [facility], Sree 08/11/2024 15:03:29 What Was The Date Of Your Most Recent Tobacco Screening? 08/11/2024 [email or web address] Information not available 08/11/2024 Sex: Unknown Functional Status Question Answer Note LastModified by Organizat ion Details LastModified Time Do you use any illicit or recreational drugs? Yes MARIJUANA . [email or web address] Information not available 02/12/2023 What is your level of alcohol consumption? Occasional [email or web address] Information not available 02/12/2023 Mental Status None recorded. Family History Relationship Description Onset Age of this Age Resolved Age Notes LastModified by Organization Details LastModified Time Father Heart disease [email or web address] Not available 05/30 16:26:54 Mother Fibromyalgia [email or web address] Not marjorie ilable 05/30/2024 16:27:13 Medical History No medical history recorded. Immunizations Vaccine Type Date Status Note Provider Nam e and Address Organization Details Recorded Time Tdap 09/10/2018 completed NILS burt [facility], ZitaLFlorinda 02/12/2023 10:31:52 Past Encounters Encounter ID Performer Location Encounter Start Date Encounter Closed Date Diagnosis/Indication Diagnosis SNOMED-CT Code Diagnosis ICD10 Code Diagnosis Note [id number] Ramirez Gomez MD [facility] [address] [place] [id number] 5 02/12/2023 10:22:07 02/12/2023 14:08:35 Active or passive immunization [id number] Z23 Adult heal th examination [id number] Z00.01 Pain of mu ltiple joints 05304421 M25.50 Acquired d eformity of the thumb 424313790 M20.009 right Essential hypertension 71752390 I10 [id number] Ramierz Gomez MD [facility] ([facility]) [address] [place] [phone] 06/13/2023 15:44:12 06/13/2023 16:34:27 Paresthesia of upper limb [id number] R20.2 left. I suspect cervical disc disease but will check out nerve conduction testing to rule out carpal tunnel syndrome or cubital tunnel syndrome. Acquired d eformity of the thumb 769972521 M20.009 right No change. Essential hypertension 18959655 I10 Poor control off medication s. [id number] Ramirez Gomez MD [facility] ([facility]) [address] [place] [address] [phone] 12/19/2023 15:45:06 12/20/2023 09:06:16 Acquired deformity of the thumb 517936503 M20.009 right No change. Essential hypertension 81417276 I10 Poor control off medication s. Acute sinusitis 76179232 J01.90 [id number] Ramirez Gomez MD [facility] ([facility]) [address] [place] [address] [phone] 05/12/2024 10:10:46 05/12/2024 12:15:47 Pain of multiple joints 15343692 M25.50 Atypical chest pain 1025 91513 R07.89 Has some chest wall pain, but he describes chest pain that is suspicious for angina with dyspnea and diaphoresi s. Family his tory of coronary arteriosclerosis 940963154 Z82.49 Paresthesi a of upper limb 92344041 R20.2 Essential hypertension 55465959 I10 Poor control off medication s. Polyuria 33116604 R35.89 [id number] Ramirez Gomez MD [facility] ([facility]) [address] [place] [address] [phone] 05/30/2024 15:42:03 05/30/2024 18:36:17 Pain of multiple joints 87190268 M25.50 Essential hypertension 66113771 I10 Improved control. Reactive a irway disease 7219594184 06 J45.909 Atypical chest pain 1025 67626 R07.89 Has some chest wall pain, but he describes chest pain that is suspicious for angina with dyspnea and diaphoresi s. Has Stress test pending next week. Orthostati c hypotension 93644363 I95.1 I recommend a shower chair due to near syncope when bending over in the shower. [id number] Ramirez Gomez MD [facility] ([facility]) [address] [place] [phone] 08/11/2024 14:33:21 08/11/2024 17:17:29 Pre-surgery evaluation [id number] Z01.818 Patient had a suboptimal stress test as his heart rate did not get high enough but negative for signs of ischemia. I believe that he is OK to proceed with surgery if OK with cardiology . He has an appt. with cardiology next week. Essential hypertension 15476337 I10 Improved control. Nontraumat ic partial rupture of left rotator cuff [id number] 759938 M75.112 Lumbar radiculopathy 128 707879 M54.16 Health Concerns Section Related Observation LastModified by Organization Detai ls LastModified Time None Recorded Concern Status LastModified by Organization Details LastModified Time None Recorded Advance Directives Directive None Recorded Payers Insurance Date Sequence Insurance Name Policy Number Policy Fernandez Covered Member ID Fernandez Member ID Guarantor Name 08/08/2024 [facility] (MEDICAID HMO) Lewis Lord [id number] Lewis Lord 08/08/2024 1 [facility] (MEDICAID HMO) Lewis Lord [id number] Lewis Lord Notes Date Note Type Note Provider Name and Address Organization Details Recorded Time 06/13/2023 text/html Hypertension IM/FMReported bypatient.Quality:her e for check-up Severity:mild Onset/Timing:gradual onset Self Care:smoker Associated Symptoms:shortness of breath;numbness;tingl ing;chest pain Has been having joint pain in his right thumb, would like to discuss.Has been having numbness and tingling in his whole left arm. Can not sleep because of the sensations.Has not been taking BP meds since February. Ramirez Gomez MD [address] [place] [address], [phone], [facility], Sree 06/13/2023 16:31:46 12/19/2023 text/html CoughReported bypatient.Quality:pro ductive Severity:worsening Associated Symptoms:nausea Nerve conduction testing demostrated ulnar neuropathy bilaterally. Ramirez Gomez MD [address] [place] [address], [phone], [facility] 12/19/2023 16:43:54 05/12/2024 text/html Angina/Chest PainReported bypatient.Location:mi dsternal; substernal on the left Quality:pressure;sque ezing;tightness;stabb ing Severity:moderate Onset/Timing:abrupt onset without warning (happened in the night.) Context:wakes from sleepNotes:Feels like his left arm feels heavy.Hypertension IM/FMReported bypatient.Quality:her e for check-up Onset/Timing:gradual onset Alleviating Factors:medication Associated Symptoms:no shortness of breath; no palpitations;chest pain(at times.) Had chest pain three nights ago that woke him up in the night.Has not been taking his BP meds. He had severe chest pain and pressure with dyspnea and diaphoresis that lasted for some time. Ramirez Gomez MD [address] [place] [address], [phone], [facility] 05/12/2024 11:18:22 05/30/2024 text/html Hypertension IM/FMReported bypatient.Quality:her e for check-up Alleviating Factors:medication Ramirez Gomez MD [address] [place] [address], [phone], [facility] 05/30/2024 17:11:34 08/11/2024 text/html Pre-OpReported bypatient.Severity:mo derate Risk Factorsno cognitive impairment; no functional impairment; no malnutrition; no frailty; able to climb a flight of stairs (exercise capacity>4 METS); no obstructive sleep apnea; no alcohol misuse; no illicit drug use; no chronic cardiopulmonary condition; not obese Anesthesia hx:no hx of anesthesia complications; no allergy to anesthetic agents; no family history of anesthesia complications Functional Ability:able to walk up stairs; no difficulty walking up hills; able to walk 4 mph;unable to perform heavy work around the house Post-Op Support:no need for assistance; needs help arranging assistance after discharge Ramirez Gomez MD [address] [place] [address], [phone], [facility] 08/11/2024 15:45:22
--- OUTSIDE RECORDS SUMMARY | 2024-08-31 10:09 | XMS_ITS | Clinical Summary ---
Author Organization [facility] Address [address] [place] [address] Care Team Providers Care Washer Meat Name Role Phone Unavailable Primary Care Provider Unavailabl e Allergies Active Allergy Reactions Criticality Noted Date Comments Codeine Sulfate Unknown 05/07/2024 Medications pregabalin (LYRICA) 50 mg Capsule Take 1 Capsule by mouth 2 times daily. Active losartan (COZAAR) 100 mg tablet Take 1 Tablet by mouth daily. Not taking Active albuterol sulfate HFA 90 mcg/actuation aerosol inhaler INHALE 2 PUFFS BY MOUTH EVERY 6 HOURS NEEDED FOR SHORTNESS OF BREATH OR WHEEZING Active metoprolol succinate (TOPROL XL) 25 mg Extended Release 24 hour tablet Take 1 Tablet by mouth daily. Not taking Active predniSONE (DELTASONE) 20 mg tablet TAKE 1 TAB BY MOUTH 3 TIMES DAILY FOR 3 DAYS, THEN 1 TAB TWICE DAILY FOR 2 DAYS, THEN 1 TAB DAILY FOR 2 DAYS Active diclofenac sodium (VOLTAREN) 75 mg Tablet, Delayed Release (E.C.) Take 75 mg by mouth 2 times daily. 5 Active HYDROcodone-rony taminophen (NORCO) 5-325 mg tablet Take 1 Tablet by mouth every 6 hours as needed for Pain. 5 Active Narcan 4 mg/actuation [place], Non-Aerosol CALL 911. USE ONE FULL SPRAY IN ONE NOSTRIL ONE TIME. REPEAT EVERY 2-3 MINUTES NEEDED IF NO OR MINIMAL RESPONSE. Active tiZANidine (ZANAFLEX) 4 mg Tablet Take 4 mg by mouth every 6 hours as needed. Active Active Problems No known active problems Encounters Date Type Department Care Team Description 08/05/2024 External Device Data [facility] ABSTRACTION Provider, Abstract 07/23/2024 External Device Data [facility] ABSTRACTION Provider, Abstract 07/22/2024 External Device Data [facility] ABSTRACTION Provider, Abstract 06/17/2024 External Device Data [facility] ABSTRACTION Provider, Abstract from Last 3 Months Family History Medical History Relation Name Comments No Known Problems Brother Heart Disease Father Hypertension Father Hypertension Mother Heart Disease Paternal Grandmother No Known Problems Sister Relation Name Status Comments Brother Father Mother Paternal Grandmother Sister Social History Tobacco Use Types Packs/Day Years Used Date Smoking Tobacco: Every Day Cigarettes Tobacco Cessation:Ready to Q uit: Not Asked; Counseling Given: Not Answered Alcohol Use Standard Drinks/Week Comments Not Currently 0 (1 standard drink = 0.6 oz pur e alcohol) Sex and Gender Information Value Date Recorded Sex Assigned at Not on file Legal Sex Male 12:38 AM [employer] Gender Identity Not on file Sexual Orientation Not on file Last Filed Vital Signs Vital Sign Reading Time Taken Comments Blood Pressure 140/92 05/07/2024 9:03 AM [employer] Pulse 68 05/07/2024 9:03 AM [employer]ATION [employer] Temperature - - Respiratory Rate 16 05/07/2024 9:03 AM [employer]ATION [employer] Oxygen Saturation 97% 05/07/2024 9:03 AM [employer]ATION [employer]ER Inhaled Oxygen Concentration - - Weight 91.4 kg (201 lb 6.4 oz) 05/07/2024 9:03 A M [employer]ATION [employer] Height 185.4 cm (6' 1 ) 05/07/2024 9:03 AM [employer]ATION [employer]ER Body Mass Index 26.57 05/07/2024 9:03 AM [employer]SPORTATION BR[employer]ER Plan of Treatment Health Maintenance Due Date Last Done Comments Pre-Diabetes and Diabetes Screening 1975 HEPATITIS B VACCINES (1 of 3 - 19+ 3-dose series) 1996 COLORECTAL SCREENING 2022 Colorectal Cancer Screening 2022 FIT-DNA Q 3 years 2022 FIT/FOBT Q 1 year 2022 Flex Sig/CT Colonography Q 5 years 2022 INFLUENZA VACCINE (#1) 2023 DTAP/TDAP/TD VACCINES (2 - T d or Tdap) 09/10/2028 09/10/2018 HPV VACCINES Aged Out No longer elizabeth felipe based on patient's age to complete this topic Insurance [address] [address] HEALTH PLAN MEDICAID
[2024-08-31 10:11] VITALS: BP 175/123; PULSE 75; RESP 18; TEMP 36.7; O2SAT 100
--- NOTE | 2024-08-31 10:13 | ED_ITS ---
HPI - Neuro Symptoms/Deficit 2 General: Chief Complaint: Neuro Symptoms/Deficit Stated Complaint: ams; left side weakness Time Seen by Provider: 08/31/24 10:06 Source: patient and EMS Mode of arrival: EMS Limitations: no limitations History of Present Illness: 48-year-old male who states that he was seen by family normal at 930 and then started having slurred speech left-sided weakness suddenly. He states he has a headache as well, he does have a stuttering speech able answer my questions appropriately. States that he he is unsteady when he tries to walk as well. Denies any vomiting or fever Associated symptoms: Reports headache(s); Deny chest pain, nausea or vomiting Related Data Home Medications ?Medication ?Instructions ?Recorded ?Confirmed metoprolol succinate 25 mg 25 mg PO DAILY 05/30/24 tablet,extended release 24 hr albuterol sulfate 90 mcg/actuation inhalation 06/25/24 08/26/24 aerosol inhaler (Ventolin HFA) losartan 100 mg tablet mg PO 06/25/24 08/26/24 pregabalin 50 mg capsule 50 mg PO BID 06/25/24 Previous Rx's ?Medication ?Instructions ?Recorded diclofenac sodium 75 mg 75 mg PO Q12H PRN pain #20 t abs 05/03/24 tablet,delayed release hydrocodone 5 mg-acetaminophen 325 1 tab PO Q6H PRN pa in #20 tabs 05/03/24 mg tablet tizanidine 4 mg tablet 4 mg PO Q6H PRN muscle spast icity 05/03/24 #20 tabs amlodipine 5 mg tablet 5 mg PO DAILY #30 tabs 08/18 nitroglycerin 0.4 mg sublingual 0.4 mg sublingual Q5M PRN chest 08/18/24 tablet pain 30 days #30 tabs Allergies Allergy/AdvReac Type Severity Reaction Status Date / Time codeine Allergy Unknown Verified 08/26/24 08:47 Review of Systems 2 Const: Denies: fever(s), chills, body aches or change in appetite Eyes: Denies: blurry vision or eye discomfort ENMT: Denies: throat pain or dental pain Card: Denies: chest pain Resp: Denies: dyspnea GI: Denies: abdominal pain, nausea, vomiting or diarrhea Musc: Denies: neck pain or back pain Skin/Breast: Denies: rash Neuro: Reports: headache(s), weakness in extremities and Slurred speech present PFSH ED 2 PFSH: Medical History No pertinent family history Hypertension Social History Smoking and tobacco/nicotine status: former use of tobacco/nicotine NIH stroke score 2 NIHSS: Level Of Consciousness - 1a: 0 Level Of Consciousness Questions - 1b: Both Correct Level Of Consciousness Commands - 1c: Both Correct Best Gaze - 2: Normal Visual Cody - 3: No Visual Loss Facial Palsy - 4: N ormal Motor Arm Right - 5: No Drift Motor Arm Left - 5: Drift Motor Leg Right - 6: No Drift Motor Leg Left - 6: Drift Limb Ataxia - 7: Absent S ensory - 8: Normal Best Language - 9: No Aphasia Dysarthia - 10: M ild/Moderate Dysarthia Extinction And Inattention - 11: 0 Score: Total Score: 3 Physical Exam 2 Const: COMMON NORMALS: patient oriented x3 HENMT: COMMON NORMALS: normocephalic and atraumatic HEAD & SCALP: n ormocephalic and atraumatic Eye: COMMON NORMALS: Equal, round and reactive pupils present and EOMs intact bilaterally PUPIL: Yes Equal, round and reactive pupils present Neck/C-Spine: COMMON NORMALS: full ROM and supple Chest: COMMONS NORMALS: normal inspection of the chest Resp: COMMON NORMALS: normal respiratory effort, No retractions, No use of accessory muscles and clear to auscultation bilaterally AUSCULTATION: clear to auscultation bilaterally Cardio: COMMON NORMALS: regular rate, regular rhythm and No murmurs present (Cardio) RATE: regular rate RHYTHM: regular rhythm GI: COMMON NORMALS: Normal to inspection, nondistended, normoactive bowel sounds present, Soft to palpation, non-tender and no masses PALPATION: Yes Soft to palpation Extremity: COMMON NORMALS: normal to inspection and full ROM Neuro: COMMON NORMALS: patient oriented x3, moves all extremities and no focal motor deficits Psych: COMMON NORMALS: mental status grossly normal, Normal thought process present and cooperative THOUGHT PROCESS: Normal thought process present Skin: COMMON NORMALS: no rashes or lesions noted and no wounds GENERAL SKIN EXAM: no rashes or lesions noted Course 2 Vital Signs: Vital signs: Vital Signs Temperature 98.1 F 08/31/24 10:11 Pulse Rate 65 08/31/24 12:01 Respiratory Rate 16 08/31/24 11:21 Blood Pressure 155/99 08/31/24 12:01 Pulse Oximetry 96 08/31/24 12:01 Oxygen Delivery Me thod Room Air 08/31/24 11:21 MDM - Neuro Symptoms/Deficit Medical Decision Making Patient presents here with headache he also had some stuttering speech and right-sided weakness. Likely a complex migraine patient was seen by neurologist his symptoms have resolved he is stable for discharge at this time he is not a lytic candidate due to resolving symptoms. Medical Records I reviewed the patient's medical records. Lab Data I reviewed the patient's lab results. 08/31/24 10:38 08/31/24 10:[address] 08/31/24 10:06 IMPRESSION: 1. No CT evidence of acute brain injury. 2. Stable bihemispheric white matter hypoattenuation, primarily in the white matter of both frontal lobes. The appearance is similar to the December [address] of the head. Consider nonemergent MRI evaluation. ASSESSMENT: ASPECTS ([place] Stroke Program Early CT Score) is 10. ADDENDUM: 08/31/24 1022 COMMENT: THIS REPORT CONTAINS FINDINGS THAT MAY BE CRITICAL TO PATIENT CARE. The exam findings were verbally communicated by me to MICHAEL HINDS via telephone conference at 10:20 AM CDT on 08/31/2024. The findings were acknowledged and understood. Laboratory Results WBC 8.19 10^3/uL (3.29-11.43) 08/31/24 10:38 RBC 5.29 10^6/uL (3.85-5.65) 08/31/24 10:38 Hgb 16.90 g/dL (11.27-16.99) 08/31/24 10:38 Hct 48.4 % (37-53) 08/31/24 10:38 MCV 91.5 fl (82-101) 08/31/24 10:38 MCH 31.9 pg (27-33) 08/31/24 10:38 MCHC 34.9 g/dL (30-55) 08/31/24 10:38 RDW 12.8 % (12.1-15.1) 08/31/24 10:38 Plt Count 286 10^3/cmm (157-399) 08/31/24 10:38 MPV 9.2 fL (7.4-10.4) 08/31/24 10:38 Neut % (Auto) 59.6 % 08/31/24 10:38 Lymph % (Auto) 29.2 % 08/31/24 10:38 [place] % (Auto) 8.9 % 08/31/24 10:38 Eos % (Auto) 1.0 % 08/31/24 10:38 Baso % (Auto) 0.7 % 08/31/24 10:38 Neut # (Auto) 4.88 10^3/uL (1.8-7.7) 08/31/24 10:38 Lymph # (Auto) 2.4 10^3/uL (0.8-4.8) 08/31/24 10:38 [place] # (Auto) 0.7 10^3/uL (0.2-0.9) 08/31/24 10:38 Eos # (Auto) 0.1 10^3/uL (0.0-0.8) 08/31/24 10:38 Baso # (Auto) 0.1 10^3/uL (0.0-0.1) 08/31/24 10:38 Nucleated RBC % (auto) 0 % 08/31/24 10:38 Nucleated RBCs # 0.0 /100WBC 08/31/24 10:38 PT 13.20 SECONDS (12.1-14.9) 08/31/24 10:38 INR 0.94 (0.8-1.2) 08/31/24 10:38 APTT 27.7 SECONDS (23.9-36.7) 08/31/24 10:38 Sodium 138 mmol/L (136-145) 08/31/24 10:38 Potassium 4.2 mmol/L (3.5-5.1) 08/31/24 10:38 Chloride 103 mmol/L (98-107) 08/31/24 10:38 Carbon Dioxide 21 mmol/L (22-29) L 08/31/24 10:38 Anion Gap 18.2 (5-19) 08/31/24 10:38 BUN 17 mg/dL (6-20) 08/31/24 10:38 Creatinine 0.8 mg/dL (0.7-1.2) 08/31/24 10:38 GFR Calculation 104.1 mL/min (90-130) 08/31/24 10:38 Glucose 97 mg/dL (65-115) 08/31/24 10:38 Calculated Osmolality 287 mOsm/kg (285-295) 08/31/24 10:38 Calcium 9.3 mg/dL (8.5-10.5) 08/31/24 10:38 Total Bilirubin 0.6 mg/dL (0.15-1.2) 08/31/24 10:38 AST 16 U/L (0-40) 08/31/24 10:38 ALT 19 U/L (0-41) 08/31/24 10:38 Alkaline Phosphatase 65 U/L (40-130) 08/31/24 10:38 Total Protein 7.5 g/dL (6.6-8.7) 08/31/24 10:38 Albumin 4.3 g/dL (3.5-5.2) 08/31/24 10:38 Globulin 3.2 g/dL (1.3-4.6) 08/31/24 10:38 All radiology interpretation(s) finalized by discharge EKG Data EKG 1: I personally reviewed and interpreted this EKG as follows: EKG interpretation date: 08/31/24 EKG interpretation time: 10:41 Interpretation: nsr hr [address] elevation qrs 101 qtc 372 Discharge Plan Discharge Patient Disposition: Home Clinical Impression: Headache Condition: Stable Prescriptions: No Action albuterol sulfate [Ventolin HFA] 90 mcg/actuation HFA aerosol inhaler inhalation pregabalin 50 mg capsule 50 mg PO BID losartan 100 mg tablet PO amlodipine 5 mg tablet 5 mg PO DAILY Qty: 30 5RF nitroglycerin 0.4 mg tablet, sublingual 0.4 mg sublingual Q5M PRN (Reason: chest pain) 30 Days Qty: 30 3RF Rx Instructions: until response; do not exceed 3 doses per episode metoprolol succinate 25 mg Tablet Extended Release 24 Hr 25 mg PO DAILY tizanidine 4 mg tablet 4 mg PO Q6H PRN (Reason: muscle spasticity) Qty: 20 0RF Rx Instructions: do not exceed 3 doses per 24 hrs hydrocodone-acetaminophen 5-325 mg tablet 1 tab PO Q6H PRN (Reason: pain) Qty: 20 0RF diclofenac sodium 75 mg tablet,delayed release (DR/EC) 75 mg PO Q12H PRN (Reason: pain) Qty: 20 0RF Discharge Orders: Discharge ED (Routine); Ordered 08/31/24 Ordered By: Michael Hinds Referrals: Ramirez Gomez MD [Primary Care Provider, [facility]] - 4-7 days Discharge Diet: Advance as tolerated Discharge Activity: Resume usual activity Patient Instructions: Headache Print Language: Bulgarian Coding Level of Care Code ED Clinical Account Executive for Jose Antonio Schulz
[2024-08-31 10:33] VITALS: BP 130/89; PULSE 80; RESP 20; O2SAT 98
--- NOTE | 2024-08-31 10:41 | ECG_ITS ---
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 Measurements Intervals [place] Rate: 60 P: 63 AL: 147 QRS: 35 QRSD: 101 T: 57 QT: 372 QTc: 372 Interpretive Statements SINUS RHYTHM POSSIBLE LEFT ATRIAL ENLARGEMENT [-0.1mV P-WAVE IN V1/V2] Compared to ECG 08/18/2024 11:38:41 Sinus bradycardia no longer present Electronically Signed On 09-04-2024 09:12:26 CDT by Leonardo Erickson M.D. [email or web address]
[2024-08-31 10:43] LABS: Basophils # 0.1 10^3/uL (0.0-0.1); Basophils % 0.7 %; Eosinophils # 0.1 10^3/uL (0.0-0.8); Hematocrit 48.4 % (37-53); Lymphocytes # 2.4 10^3/uL (0.8-4.8); Lymphocytes % 29.2 %; Mean Corpuscular HGB Conc 34.9 g/dL (30-55); Mean Corpuscular Hemoglobin 31.9 pg (27-33); Mean Corpuscular Volume 91.5 fl (82-101); Mean Platelet Volume 9.2 fL (7.4-10.4); Monocytes # 0.7 10^3/uL (0.2-0.9); Monocytes % 8.9 %; Neutrophils # 4.88 10^3/uL (1.8-7.7); Neutrophils % 59.6 %; Nucleated Red Blood Cells % 0 %; Platelet Count 286 10^3/cmm (157-399); Red Blood Count 5.29 10^6/uL (3.85-5.65); Red Cell Distribution Width 12.8 % (12.1-15.1); White Blood Count 8.19 10^3/uL (3.29-11.43)
--- NOTE | 2024-08-31 10:52 | PM.SAN ---
Stroke Alert Activation ED Arrival Date: 08/31/24 ED Arrival Time: 10:05 ED Physican at Bedside: 10:05 Last Known Normal/at Baseline: 1-2 hours ago Other Last Known Well Infomation: this 48 year old man presented with sudden onset of left sided weakness and atypical stuttering speech pattern that started while he was awake less than an hour ago. He describes a throbbing pounding headache. His weakness is rapidly improving and improved during my exam. There were multiple atypical features including the improvement associated with sitting up and standing up at the bedside. My exam performed with assistance from Lima Duran on tele. Stroke Alert Activated by: triage Stroke Alert Activation Time: 09:59 Stroke MD @ Bedside Time: 10:00 NIH Stroke Scale Time: 10:21 NIH stroke score NIHSS: Level Of Consciousness - 1a: 0 Level Of Consciousness Questions - 1b: Both Correct Level Of Consciousness Commands - 1c: Both Correct Best Gaze - 2: Normal Visual Cody - 3: No Visual Loss Facial Palsy - 4: Normal Motor Arm Right - 5: No Drift Motor Arm Left - 5: Drift Motor Leg Right - 6: No Drift Motor Leg Left - 6: No Drift Limb Ataxia - 7: Absent Sensory - 8: Normal Best Language - 9: No Aphasia Dysarthia - 10: Mild/Moderate Dysarthia (atypical stutter) Stroke Alert Data/Treatment Time to CT of Head: 10:05 CT Results Date: 08/31/24 CT Results Time: 10:20 CT Impression: chronic bifrontal white matter changes Stroke Risk Factors: coronary artery disease (atypical chest pain scheduled for stress test), hypertension and smoker tPA Admin Prior to Arrival: No Patient & Family Educated on: Treament Plan and Prognosis Other Patient & Family Education: patient advised that he has atypical migraine causing symptoms. treat with depacon Other Information: this patient has had multiple presentations identical to today as far back as 2016 and recently as 2019. he has had similar episodes during visits to my office. plan on treatint him with depacon and send him home for outpatient followup in my office. plan on mri brain with and without contrast to further evaluate his bifrontal white matter changes which i suspect are post traumatic. Critical Care Time Critical Care Time: 30 - 74 mins A&P Assessment and plan (1) Functional neurological symptom disorder with abnormal movement: (2) Smoking addiction: (3) Migraine headache with aura: Plan treat with depacon. home on aspirin and it would be reasonable to treat him with depakote 500 mg po daily PDMP PDMP Reviewed: Not Reviewed Coding Level of Care Code Acute Code for Chg Fwd Diagnoses Functional neurological symptom disorder with abnormal movement F44.4 Smoking addiction F17.200 Migraine headache with aura G43.109
[2024-08-31 11:00] LABS: INR 0.94 (0.8-1.2)
[2024-08-31 11:01] LABS: Partial Thromboplastin Time 27.7 SECONDS (23.9-36.7)
[2024-08-31] MEDS: valproic acid inj 500 MG in sodium chloride 0.9% 50 ML 55 MG IV (11:03)
[2024-08-31] MEDS: ketorolac 30 mg/mL INJ 15 MG IVP (11:06)
[2024-08-31 11:08] LABS: Alanine Aminotransferase 19 U/L (0-41); Albumin Level 4.3 g/dL (3.5-5.2); Alkaline Phosphatase 65 U/L (40-130); Anion Gap 18.2 (5-19); Aspartate Amino Transferase 16 U/L (0-40); Blood Urea Nitrogen 17 mg/dL (6-20); Calcium 9.3 mg/dL (8.5-10.5); Carbon Dioxide 21 mmol/L (22-29); Chloride 103 mmol/L (98-107); Globulin 3.2 g/dL (1.3-4.6); Glomerular Filtration Rate 104.1 mL/min (90-130); Glucose 97 mg/dL (65-115); Osmolality Calculated 287 mOsm/kg (285-295); Potassium 4.2 mmol/L (3.5-5.1); Sodium 138 mmol/L (136-145); Total Bilirubin 0.6 mg/dL (0.15-1.2); Total Protein 7.5 g/dL (6.6-8.7)
[2024-08-31 11:21] VITALS: BP 152/104; PULSE 59; RESP 16; O2SAT 97
[2024-08-31 12:01] VITALS: BP 155/99; PULSE 65; O2SAT 96
[2024-09-02 12:04] LABS: Glucose Point of Care 98 mg/dL (70-110)
== END 2024-08-31 12:02 | disposition home or self-care (01) ==
PROVIDERS: Emergency Provider Emergency Medicine; PCP Family Medicine
DX: R51.9 Headache, unspecified (principal); Z87.891 Personal history of nicotine dependence; I10 Essential (primary) hypertension
CPT/HCPCS: 36415; 36416; 70450; 80053; 82962; 85025; 85610; 85730; 93005; 96374; 96375; 99285; J1885; J3490

== ENCOUNTER 2024-09-19 07:06 | Outpatient (CLI) | payer MEDICAID, SELFPAY ==
--- NOTE | 2024-09-19 07:19 | MR_ITS ---
WS: [id number] MRI BRAIN WITHOUT CONTRAST HISTORY: ALTERED MENTAL STATUS COMPARISON: 07/29/2015, CT head 08/31/2024 TECHNIQUE: Diffusion imaging, multiplanar T1, T2 and FLAIR imaging obtained. No evidence for acute infarct or hemorrhage. Bullock-white matter differentiation is normal. Numerous bilateral T2 and FLAIR signal hyperintensities. These are distributed in the subcortical and periventricular white matter. Some of these do approach the corpus callosum. Some of these lesions are ovoid. Minimal progression since the prior examination from 07/29/2015. There is no large infarct. No hemorrhage. No hippocampal atrophy. Ventricles and extra-axial spaces are normal. Mild cerebellar atrophy. No white matter lesions. Dural venous sinuses and [place] demonstrate no abnormality on this unenhanced studies. Paranasal sinuses: Clear. Mastoid air cells: Normal. Calvarium and scalp: Intact. MR/MR head wo con* [id number] IMPRESSION: 1. No acute infarct. No diffusion abnormalities. 2. Numerous bilateral T2 and FLAIR signal hyperintensities in the periventricu lar and subcortical white matter. More than expected for patient's age. Minimal progression since 07/29/2015. Consider demyelinating process such as multiple s clerosis. These changes may be related to diabetes, smoking, chronic hypertensi on and small vessel disease. 3. No hemorrhage.
== END 2024-09-19 07:07 | disposition home or self-care (01) ==
LOC: RAD 07:06
PROVIDERS: PCP Family Medicine; Visit Provider Family Medicine
DX: R41.82 Altered mental status, unspecified (principal)
CPT/HCPCS: 70551

== ENCOUNTER 2024-09-23 11:07 | Outpatient (CLI) | payer MEDICAID, SELFPAY ==
--- NOTE | 2024-09-23 11:45 | MR_ITS ---
WS: [id number] MRI CERVICAL SPINE NONCONTRAST TECHNIQUE: Sagittal T1, T2 and STIR imaging. Axial T2, gradient, and fiesta imaging. CLINICAL INFORMATION: M54.12 - Radiculopathy, cervical region COMPARISON: None. FINDINGS: Straightening of the normal cervical lordosis. Cord signal is normal. No signal abnormalities in the cervical cord. No visualized demyelinating lesions. C2-C3: Mild facet arthropathy. Spinal canal and foramen are patent. C3-C4: Disc osteophyte complex with endplate ridging. Mild LEFT greater than RIGHT bony foraminal narrowing. Mild facet arthropathy. C4-C5: Disc osteophyte complex with mild central canal stenosis. Moderate facet arthropathy. Moderate to severe RIGHT bony foraminal narrowing. C5-C6: Disc osteophyte complex with mild central canal stenosis. Uncovertebral joint hypertrophy. Slight indentation on the cervical cord. Severe LEFT bony foraminal narrowing. Moderate RIGHT bony foraminal narrowing. C6-C7: Disc osteophyte complex with mild central canal stenosis. Uncovertebral joint hypertrophy. Severe LEFT and moderate to severe RIGHT bony foraminal narrowing. C7-T1: Slight anterolisthesis. Spinal canal and foramen are patent. MR/MR cervical spine wo/w [id number] IMPRESSION: 1. No abnormal gadolinium enhancement. 2. No demyelinating lesions in the cervical cord. 3. Mild central canal stenosis due to small disc osteophyte protrusions at C4- C5 C5-C6 and C6-C7. 4. Moderate to severe bony foraminal narrowing worse at RIGHT C4-C5, LEFT C5-C 6, and LEFT greater than RIGHT C6-7.
[2024-09-23] MEDS: gadobenate dimeglumine 20 mL vial IV (11:52)
== END 2024-09-23 11:08 | disposition home or self-care (01) ==
PROVIDERS: PCP Family Medicine; Visit Provider Specialist
DX: M47.22 Other spondylosis with radiculopathy, cervical region (principal); M48.02 Spinal stenosis, cervical region; M25.78 Osteophyte, vertebrae
CPT/HCPCS: 72156

== ENCOUNTER → 2024-12-01 16:49 | Outpatient (BNVA) | payer MEDICAID, SELFPAY | PROVIDERS: PCP Family Medicine; Visit Provider Family Medicine | DX: M79.632 Pain in left forearm (principal) | CPT/HCPCS: 73090 ==

== ENCOUNTER 2024-12-24 10:17 | Outpatient (RCR) | payer MEDICAID, SELFPAY | END 2025-01-02 23:59 | disposition home or self-care (01) | LOC: SPT 10:17 | PROVIDERS: PCP Family Medicine; Visit Provider Anesthesiology Pain Medicine | DX: M54.2 Cervicalgia (principal); G89.29 Other chronic pain | CPT/HCPCS: 97110; 97140; 97161 ==

== ENCOUNTER 2024-12-31 08:08 | Outpatient (CLI) | payer MEDICAID, SELFPAY ==
--- NOTE | 2024-12-31 | ECG_ITS ---
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 Interpretive Statements Procedure: A total of 0.4 mg of Lexiscan was infused over 20 seconds. The stress phase was continued for a total of 5 minutes. Sestamibi was injected 20 seconds after the Lexiscan infusion. Findings: the patient's resting blood pressure was 146/103 mmHg with a heart rate of 73 bpm. The resting EKG showed normal sinus rhythm with possible old anterior infarction. After Lexiscan infusion the patient's blood pressure gradually decreased to 127/88 mmHg and the heart rate gradually increased to 105 bpm. At the end of recovery the patient blood pressure was 142/95 mmHg and heart rate was 87 bpm. No arrhythmias or ST-T wave changes. Conclusion: 1. Normal EKG response to Lexiscan infusion 2. No Lexiscan induced chest pain or cardiac arrhythmia. 3. Normal blood pressure and heart rate response. 4. Nuclear myocardial perfusion scan pending; see separate report. Electronically Signed On 12-31-2024 13:12:34 CDT by Dung Suero M.D. [email or web address] [id number]
[2024-12-31 08:44] VITALS: BMI 26.4
--- NOTE | 2024-12-31 08:45 | NMCV_ITS ---
NM kris perf SPECT r/s* [id number] Lewis Lord Age: 49 Gender: M : 1975 Exam Date: 12/31/2024 09:14 Ordering Phys: Bjorn Reagan MD ([email or web address]) Technologist: BORIS Mckinney Exam Location: [facility] Indications: cp STRESS TEST [facility] IMAGE PROTOCOL Rest/Stress 1 Lexiscan Day Radiopharmaceutical Dose (mCi) Administration Site Administered by Rest: Tc-99m 10.7 IV BORIS Mckinney Sestamibi Stress:Tc-99m 32.6 IV Bella Lopez, AQUACULTURE DIRECTOR Sestamibi Rest: 31-Dec-2024 60 Discovery 630 Stress: 31-Dec-2024 30 Discovery 630 0.4mg Lexiscan. Supine position only as patient was unable to lay prone. SPECT RESULTS Technical Quality: Good Raw Data Analysis: Normal Image Corrections: No attenuation or motion correction applied Summed Stress Score: 0 Summed Rest Score: 1 Summed Difference Score: 0 PERFUSION FINDINGS SPECT images demonstrate homogeneous tracer distribution throughout the myocardium. FUNCTIONAL RESULTS (calculated via Gated SPECT) Stress Image LV EF (%): 66 Stress EDV (mL):118 TID: 1.1 Stress ESV (mL):40 FUNCTIONAL FINDINGS: There is normal left ventricular systolic function. IMPRESSIONS Myocardial perfusion imaging is normal. There is normal left ventricular systolic function, EF66%. Dung Suero MD, FACC (Electronically Signed) Final Date: 31 December 2024 12:33 S
[2024-12-31 09:59] VITALS: BP 142/95; PULSE 93
== END 2024-12-31 08:09 | disposition home or self-care (01) ==
LOC: CDL 08:09
PROVIDERS: PCP Family Medicine; Visit Provider Internal Medicine Cardiovascular Disease
DX: R07.9 Chest pain, unspecified (principal)
CPT/HCPCS: 36415; 78452; 93017; 96374; A9500; J2785

== ENCOUNTER 2025-01-03 05:00 | Outpatient (RCR) | payer MEDICAID, SELFPAY | END 2025-02-01 23:59 | disposition home or self-care (01) | LOC: SPT 05:00 | PROVIDERS: PCP Family Medicine; Visit Provider Anesthesiology Pain Medicine | DX: M54.2 Cervicalgia (principal); G89.29 Other chronic pain | CPT/HCPCS: 97110; 97140 ==

== ENCOUNTER → 2025-01-07 08:48 | Outpatient (BNVA) | payer MEDICAID, SELFPAY | PROVIDERS: PCP Family Medicine; Visit Provider Specialist | DX: G37.9 Demyelinating disease of central nervous system, unspecified (principal) | CPT/HCPCS: 36415; 80053; 80503; 81001; 82040; 82042; 82542; 82784; 82945; 83916; 84157; 85025; 86592; 87070; 87075; 87205; 87327; 89050 ==

== ENCOUNTER 2025-01-13 09:27 | Emergency (ER) | payer MEDICAID, SELFPAY ==
[2025-01-13 09:30] VITALS: BP 121/98; PULSE 69; RESP 16; TEMP 37; O2SAT 99; BMI 26.4
[2025-01-13 09:32] VITALS: BP 121/98; PULSE 73; O2SAT 99
--- OUTSIDE RECORDS SUMMARY | 2025-01-13 09:41 | XMS_ITS | Clinical Summary ---
Author Organization [facility] Address [address] [place] [address] Care Team Providers Care Purchase Order Checker Name Role Phone Unavailable Primary Care Provider [...] for Pain. 5 Active Narcan 4 mg/actuation [place], Non-Aerosol CALL 911. USE ONE FULL SPRAY IN ONE NOSTRIL ONE TIME. REPEAT EVERY 2-3 MINUTES NEEDED IF NO OR MINIMAL RESPONSE. 5 Active tiZANidine (ZANAFLEX) 4 mg Tablet Take 4 mg by mouth every 6 hours as needed. 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 Inhaled Oxygen Concentration - - Weight 91.4 kg (201 lb 6.4 oz) 05/07/2024 9:03 A M GROUT MACHINE OPERATOR Height 185.4 cm (6' 1 ) 05/07/2024 9: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
--- NOTE | 2025-01-13 09:43 | ECG_ITS ---
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 Measurements Intervals [place] Rate: 68 P: 60 MO: 153 QRS: 66 QRSD: 95 T: 59 QT: 352 QTc: 377 Interpretive Statements SINUS RHYTHM WITH SINUS ARRHYTHMIA Compared to ECG 08/31/2024 10:41:13 No significant changes Electronically Signed On 01-14-2025 20:27:36 STAMP PRESS OPERATOR by Dung Suero M.D. [id number]
--- NOTE | 2025-01-13 09:45 | W.ED.CHESTPA ---
HPI - Chest Pain General: Chief Complaint: Chest Pain Stated Complaint: CP Time Seen by Provider: 01/13/25 09:43 History of Present Illness: 49-year-old male presents emergency room with complaint of chest pain. He was upstairs visiting some family states things been very stressful he started get some chest discomfort had completely resolved by the time he was brought to the ED. He has had cardiac evaluation in the past including a stress test done within the last 2 weeks Lexiscan stress test was related to him as being normal. He is still following with cardiology where his hypertension is treated. Associated symptoms: Deny abdominal pain, dyspnea or fever(s) Related Data Home Medications ?Medication ?Instructions ?Recorded ?Confirmed metoprolol succinate 25 mg 25 mg PO DAILY 05/30/24 01/13/25 tablet,extended release 24 hr albuterol sulfate 90 mcg/actuation 2 puff inhalation Q4H PRN 06/25/24 01/13/25 aerosol inhaler (Ventolin HFA) Shortness Of Breath losartan 100 mg tablet 100 mg PO DAILY 06/25/24 01/13/25 pregabalin 50 mg capsule 50 mg PO BID 06/25/24 01/13/25 amitriptyline 10 mg tablet 10 mg PO BEDTIME 01/13/25 01/13/25 Previous Rx's ?Medication ?Instructions ?Recorded hydrocodone 5 mg-acetaminophen 325 1 tab PO Q6H PRN pain #20 tabs 05/03/24 mg tablet tizanidine 4 mg tablet 4 mg PO Q6H PRN muscle spasticity 05/03/24 #20 tabs amlodipine 5 mg tablet 5 mg PO DAILY #30 tabs 08/18/24 nitroglycerin 0.4 mg sublingual 0.4 mg sublingual Q5M PRN chest 08/18/24 tablet pain 30 days #30 tabs divalproex 500 mg tablet,extended 500 mg PO DAILY #30 tabs 10/29/24 release 24 hr (Depakote ER) promethazine-DM 6.25 mg-15 mg/5 mL 10 ml PO Q6H PRN cough #118 mL 12/13/24 oral syrup aspirin 81 mg tablet,delayed 81 mg PO DAILY #30 tabs 01/13/25 release pantoprazole 40 mg tablet,delayed 40 mg PO DAILY #30 tabs 01/13/25 release (Protonix) Allergies Allergy/AdvReac Type Severity Reaction Status Date / Time codeine Allergy Unknown Verified 01/06/25 07:38 Review of Systems Const: Denies: fever(s) or chills Card: Denies: chest pain Resp: Denies: dyspnea GI: Denies: abdominal pain : Denies: dysuria, urinary frequency or urinary urgency Musc: Denies: neck pain or back pain Skin/Breast: Denies: rash PFSH ED PFSH: Medical History Cervical radiculopathy at C5 Functional neurological symptom disorder with abnormal movement COPD (chronic obstructive pulmonary disease) No pertinent family history Hypertension Social History Smoking and tobacco/nicotine status: current every day tobacco/nicotine user (.5 PPD) cigarettes Physical Exam Const: COMMON NORMALS: no acute distress GENERAL APPEARANCE: cooperative and comfortable ORIENTATION/CONSCIOUSNESS: Yes awake, Yes oriented to person, Yes oriented to place and Yes oriented to time HENMT: COMMON NORMALS: normocephalic, atraumatic and hearing grossly normal bilaterally HEAD & SCALP: normocephalic and atraumatic Resp: COMMON NORMALS: normal respiratory effort, No retractions, No use of accessory muscles and clear to auscultation bilaterally AUSCULTATION: clear to auscultation bilaterally Cardio: COMMON NORMALS: regular rate, regular rhythm and No murmurs present (Cardio) RATE: regular rate RHYTHM: regular rhythm GI: COMMON NORMALS: Soft to palpation and No hepatosplenomegaly present AUSCULTATION: Yes normoactive bowel sounds PALPATION: Yes Soft to palpation, No Tenderness to palpation present (GI), No Guarding due to palpation present (GI) and Yes No hepatosplenomegaly present Extremity: COMMON NORMALS: normal to inspection, capillary refill normal, no clubbing, cyanosis or edema, no calf tenderness and no pedal edema Neuro: SENSORIUM/ORIENTATION: Yes oriented to person, Yes oriented to place and Yes oriented to time Skin: COMMON NORMALS: no rashes or lesions noted GENERAL SKIN EXAM: no rashes or lesions noted Course Vital Signs: Vital signs: Vital Signs Temperature 98.6 F 01/13/25 09:30 Pulse Rate 78 01/13/25 11:11 Respiratory Rate 16 01/13/25 09:30 Blood Pressure 130/82 01/13/25 11:11 Pulse Oximetry 99 01/13/25 11:11 Oxygen Delivery Me thod Room Air 01/13/25 10:02 MDM - Chest Pain Medical Decision Making Patient seen initially evaluated initial EKG is no acute changes will get serial enzymes CBC CMP and chest x-ray evaluate for acute coronary syndrome. Consideration for pneumonia COPD exacerbation as well. PE felt to be much less likely as sats are normal respiratory rate normal and he is no longer having any chest pain. Cardiac enzymes negative patient has had no further symptoms. He recently had a stress test. He states he has had multiple episodes like this so far his cardiac evaluation has been negative he preferred to go home at this point we will discharge home have him follow-up with cardiology as previously scheduled Medical Records Lexiscan sestamibi stress test December 31, 2024 PERFUSION FINDINGS SPECT images demonstrate homogeneous tracer distribution throughout the myocardium. FUNCTIONAL RESULTS (calculated via Gated SPECT) Stress Image LV EF (%): 66 Stress EDV (mL):118 TID: 1.1 Stress ESV (mL):40 FUNCTIONAL FINDINGS: There is normal left ventricular systolic function. IMPRESSIONS Myocardial perfusion imaging is normal. There is normal left ventricular systolic function, EF66%. Dung Suero MD, FACC (Electronically Signed) Final Date: 31 December 2024 Lab Data I reviewed the patient's lab results. 01/13/25 09:39 01/13/25 09:39 Radiology Impressions Chest X-Ray 01/13/25 10:20 IMPRESSION: 1. Negative chest. Laboratory Results WBC 8.70 10^3/uL (3.29-11.43) 01/13/25 09:39 RBC 5.50 10^6/uL (3.85-5.65) 01/13/25 09:39 Hgb 17.50 g/dL (11.27-16.99) H 01/13/25 09:39 Hct 52.0 % (37-53) 01/13/25 09:39 MCV 94.5 fl (82-101) 01/13/25 09:39 MCH 31.8 pg (27-33) 01/13/25 09:39 MCHC 33.7 g/dL (30-55) 01/13/25 09:39 RDW 12.9 % (12.1-15.1) 01/13/25 09:39 Plt Count 298 10^3/cmm (157-399) 01/13/25 09:39 MPV 9.7 fL (7.4-10.4) 01/13/25 09:39 Neut % (Auto) 52.6 % 01/13/25 09:39 Lymph % (Auto) 30.6 % 01/13/25 09:39 [place] % (Auto) 10.6 % 01/13/25 09:39 Eos % (Auto) 3.1 % 01/13/25 09:39 Baso % (Auto) 0.9 % 01/13/25 09:39 Neut # (Auto) 4.58 10^3/uL (1.8-7.7) 01/13/25 09:39 Lymph # (Auto) 2.7 10^3/uL (0.8-4.8) 01/13/25 09:39 [place] # (Auto) 0.9 10^3/uL (0.2-0.9) 01/13/25 09:39 Eos # (Auto) 0.3 10^3/uL (0.0-0.8) 01/13/25 09:39 Baso # (Auto) 0.1 10^3/uL (0.0-0.1) 01/13/25 09:39 Nucleated RBC % (auto) 0 % 01/13/25 09:39 Nucleated RBCs # 0.0 /100WBC 01/13/25 09:39 Sodium 139 mmol/L (136-145) 01/13/25 09:39 Potassium 4.7 mmol/L (3.5-5.1) 01/13/25 09:39 Chloride 102 mmol/L (98-107) 01/13/25 09:39 Carbon Dioxide 26 mmol/L (22-29) 01/13/25 09:39 Anion Gap 15.7 (5-19) 01/13/25 09:39 BUN 13 mg/dL (6-20) 01/13/25 09:39 Creatinine 0.9 mg/dL (0.7-1.2) 01/13/25 09:39 GFR Calculation 90.4 mL/min (90-130) 01/13/25 09:39 Glucose 91 mg/dL (65-115) 01/13/25 09:39 Calculated Osmolality 288 mOsm/kg (285-295) 01/13/25 09:39 Calcium 9.4 mg/dL (8.5-10.5) 01/13/25 09:39 Total Bilirubin 0.3 mg/dL (0.15-1.2) 01/13/25 09:39 AST 15 U/L (0-40) 01/13/25 09:39 ALT 15 U/L (0-41) 01/13/25 09:39 Alkaline Phosphatase 67 U/L (40-130) 01/13/25 09:39 Troponin T Baseline < 6 ng/L (0-15) 01/13/25 09:39 Total Protein 7.0 g/dL (6.6-8.7) 01/13/25 09:39 Albumin 4.3 g/dL (3.5-5.2) 01/13/25 09:39 Globulin 2.7 g/dL (1.3-4.6) 01/13/25 09:39 All radiology interpretation(s) finalized by discharge ED provider radiology interpretation(s): Chest x-ray no acute findings no infiltrates no pleural effusions EKG Data EKG 1: I personally reviewed and interpreted this EKG as follows: Interpretation: EKG 01/13/2025 938 sinus rhythm rate of 68. 153 QTc [address] changes noted. Compared to EKG 08/31/2024 no significant change. Discharge Plan Discharge Patient Disposition: Home Clinical Impression: Atypical chest pain Condition: Stable Prescriptions: New aspirin 81 mg tablet,delayed release (DR/EC) 81 mg PO DAILY Qty: 30 0RF pantoprazole [Protonix] 40 mg tablet,delayed release (DR/EC) 40 mg PO DAILY Qty: 30 0RF No Action divalproex [Depakote ER] 500 mg tablet extended release 24 hr 500 mg PO DAILY Qty: 30 5RF albuterol sulfate [Ventolin HFA] 90 mcg/actuation HFA aerosol inhaler 2 puff inhalation Q4H PRN (Reason: Shortness Of Breath) pregabalin 50 mg capsule 50 mg PO BID losartan 100 mg tablet 100 mg PO DAILY amlodipine 5 mg tablet 5 mg PO DAILY Qty: 30 5RF nitroglycerin 0.4 mg tablet, sublingual 0.4 mg sublingual Q5M PRN (Reason: chest pain) 30 Days Qty: 30 3RF Rx Instructions: until response; do not exceed 3 doses per episode promethazine-DM 6.25-15 mg/5 mL syrup 10 ml PO Q6H PRN (Reason: cough) Qty: 118 0RF Rx Instructions: will make you sleepy metoprolol succinate 25 mg Tablet Extended Release 24 Hr 25 mg PO DAILY tizanidine 4 mg tablet 4 mg PO Q6H PRN (Reason: muscle spasticity) Qty: 20 0RF Rx Instructions: do not exceed 3 doses per 24 hrs hydrocodone-acetaminophen 5-325 mg tablet 1 tab PO Q6H PRN (Reason: pain) Qty: 20 0RF amitriptyline 10 mg tablet 10 mg PO BEDTIME Discharge Orders: Discharge ED (Routine); Ordered 01/13/25 Ordered By: Marlon Negrete Referrals: Ramirez Gomez MD [Primary Care Provider, Family Practice] Discharge Diet: Usual diet Discharge Activity: Resume usual activity Patient Instructions: Opioid Safety, Pain Management, Patient Portal & Nathaniel Instructions, Chest Pain (ED) Activity Restrictions/Additional Instructions: Thank you for choosing [facility] for your healthcare needs today. It is very important that you follow up as instructed or that you return to the Emergency Department should you have concerns or if your condition changes or worsens in any way. Emergency department visits are focused on emergent conditions, in some cases you may require further evaluation on an outpatient basis. You were seen in the emergency room with complaints of chest discomfort that was self-limited. You had recently had a stress test with within the last 2 weeks we reviewed that in your chart it was normal. Heart enzymes EKG were normal. Will discharge you home. Recommend that you start baby aspirin daily. Additionally we will start you on pantoprazole 40 mg once daily. (Please note that included in your discharge packet is information concerning opioid safety and pain management. 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
[2025-01-13 10:02] VITALS: PULSE 65; O2SAT 98
--- NOTE | 2025-01-13 10:20 | XR_ITS ---
WS: [id number] Exam: XR chest 1V portable [id number] Date/Time of Exam: 01/13/2025 10:25 AM Reason For Exam: Chest pain Comparison 03/16/2022. Lungs are fully inflated and clear. Normal cardiomediastinal silhouette and regional bony elements. No pleural effusion. XR/XR chest 1V portable [id number] IMPRESSION: 1. Negative chest.
[2025-01-13 10:25] LABS: Troponin(5th) Baseline < 6 ng/L (0-15)
[2025-01-13 10:34] LABS: Hematocrit 52.0 % (37-53); Hemoglobin 17.50 g/dL (11.27-16.99); Mean Corpuscular HGB Conc 33.7 g/dL (30-55); Mean Corpuscular Hemoglobin 31.8 pg (27-33); Mean Corpuscular Volume 94.5 fl (82-101); Nucleated Red Blood Cells % 0 %; Platelet Count 298 10^3/cmm (157-399); Red Blood Count 5.50 10^6/uL (3.85-5.65); White Blood Count 8.70 10^3/uL (3.29-11.43)
[2025-01-13 10:44] LABS: Alanine Aminotransferase 15 U/L (0-41); Albumin Level 4.3 g/dL (3.5-5.2); Alkaline Phosphatase 67 U/L (40-130); Aspartate Amino Transferase 15 U/L (0-40); Blood Urea Nitrogen 13 mg/dL (6-20); Calcium 9.4 mg/dL (8.5-10.5); Carbon Dioxide 26 mmol/L (22-29); Chloride 102 mmol/L (98-107); Globulin 2.7 g/dL (1.3-4.6); Glucose 91 mg/dL (65-115); Osmolality Calculated 288 mOsm/kg (285-295); Sodium 139 mmol/L (136-145); Total Protein 7.0 g/dL (6.6-8.7)
[2025-01-13 11:09] LABS: Anion Gap 15.7 (5-19); Potassium 4.7 mmol/L (3.5-5.1)
[2025-01-13 11:11] VITALS: BP 130/82; PULSE 78; O2SAT 99
== END 2025-01-13 11:12 | disposition home or self-care (01) ==
PROVIDERS: Emergency Provider Family Medicine; PCP Family Medicine
DX: R07.89 Other chest pain (principal); F17.210 Nicotine dependence, cigarettes, uncomplicated; J44.9 Chronic obstructive pulmonary disease, unspecified; I10 Essential (primary) hypertension
CPT/HCPCS: 36415; 71045; 80053; 84484; 85025; 93005; 99285

== ENCOUNTER 2025-02-02 05:00 | Outpatient (RCR) | payer MEDICAID, SELFPAY | END 2025-02-09 09:31 | disposition home or self-care (01) | LOC: SPT 05:00 | PROVIDERS: PCP Family Medicine; Visit Provider Anesthesiology Pain Medicine | DX: M54.2 Cervicalgia (principal); G89.29 Other chronic pain | CPT/HCPCS: 97110 ==